=== PATIENT | male | born 1945 | race Caucasian/White ===

== ENCOUNTER 2018-01-05 19:18 | Inpatient (IN) | payer MEDICARE, SELFPAY ==
[2018-01-05] VITALS (10 sets, daily range): BP systolic 109–160; BP diastolic 42–120; PULSE 89–116; RESP 10–23; TEMP 36.7–39.3; O2SAT 83–94; BMI 34.9
--- NOTE | 2018-01-05 19:33 | ED.RN ---
RN CALLED FOR EKG, NO OLD EKG'S IN MUSE
[2018-01-05 19:36] LABS: Bedside Glucose 130 mg/dL (70-110)
--- NOTE | 2018-01-05 19:42 | RAD_ITS ---
STUDY: X-RAY CHEST REASON FOR EXAM: Male, 72 years old. Short of breath and COPD. TECHNIQUE: Single AP portable view of the chest. COMPARISON: None. FINDINGS: The lungs are hyperexpanded. There are coarsened interstitial markings suggestive of mild chronic fibrosis. No gross focal infiltrates. Calcified granulomas in the upper lobes and left lung base. No gross effusions. Normal size heart. Normal mediastinum and martin. Normal visualized pulmonary arteries. Normal visualized aortic arch and descending thoracic aorta. Normal visualized thoracic spine. Normal visualized ribs, clavicles, and shoulders. There is no demonstrated abnormality of the visualized soft tissue structures of the upper abdomen. RAD/Chest 1 View (Portable) IMPRESSION: There are findings consistent with COPD. There is no evidence of acute chest disease. Electronically Signed: John Garcia MD at 19:57 EDT , Service support ,
--- NOTE | 2018-01-05 19:42 | EKG12_ITS ---
Test Reason : CP Blood Pressure : / mmHG Vent. Rate : 114 BPM Atrial Rate : 114 BPM P-R Int : 178 ms QRS Dur : 088 ms QT Int : 296 ms P-R-T Axes : -06 075 020 degrees QTc Int : 407 ms Sinus tachycardia with frequent Premature ventricular complexes in a pattern of bigeminy Otherwise normal ECG Confirmed by TALIB BYNUM, SURESH ([id number]), society editor LISA VAQSUEZ ([id number] on 01/07/2018 3:38:17 PM Referred By: KIM Confirmed By:SURESH MAYERS MD
[2018-01-05] MEDS: Albuterol 2.5 MG/3 ML VIAL.NEB. INHALATION ×2 (20:00)
[2018-01-05] MEDS: Ipratropium/Albuterol Sulfate 3 ML AMPUL.NEB INHALATION (20:00)
[2018-01-05] MEDS: Acetaminophen 500 MG Tablet 1000 MG PO (20:20)
[2018-01-05] MEDS: MethylPREDNISolone 125 MG/2 ML Vial IV (20:21)
[2018-01-05 20:31] LABS: ALB/GLOB Ratio 0.8 RATIO (0.9-2.4); AST(SGOT) 22 U/L (15-37); Alanine Aminotransfer ALT/SGPT 29 U/L (16-61); Alkaline Phosphatase 59 U/L (45-117); Anion Gap 4 (5-15); BUN 11 mg/dL (7-18); BUN/Creat Ratio 11.1 RATIO (10-20); Calcium,Total 8.4 mg/dL (8.5-10.1); Chloride 99 mmol/L (98-107); Creatinine, Serum 0.99 mg/dL (0.70-1.30); EST Glomerular Filtration Rate 79 mL/min (>60); Est Glom Filt Rate - Afr Amer 96 mL/min (>60); Estimated Creatinine Clearance 66.21 ml/min; Globulin 3.6 g/dL (2.2-4.2); Glucose 117 mg/dL (74-106); Potassium 4.5 mmol/L (3.5-5.1); Protein, Total 6.6 g/dL (6.4-8.2); Sodium Level 137 mmol/L (136-145)
[2018-01-05 20:32] LABS: Absolute Lymphocyte Count 1.19 X10^3/ul (0.83-4.51); Absolute Neutrophil Count 3.3 X10^3/uL (2.0-7.7); Basophil# 0.05 X10^3/uL; Basophil% 0.9 % (0-1); Differential Indicated SCAN CRITERIA MET; Eosinophils% 1.8 % (0-5); Hematocrit 34.3 % (40-54); Hemoglobin 9.5 g/dl (13.0-16.5); Lymphocyte # 1.19 X10^3/ul (4.0); Lymphocyte % 21.3 % (19-41); Mean Corp Hgb Conc 27.7 g/gl (32-36); Mean Corpuscular Hgb 26.6 pg (27.0-32.0); Mean Corpuscular Volume 96.1 fL (80-94); Mean Platelet Vol. 9.7 fl (6.2-12.0); Monocyte# 0.81 X10^3/uL; Monocyte% 14.5 % (0-10); Neutrophil # 3.34 X10^3/uL (2.7-7.7); Neutrophil % 59.7 % (47-70); POSITIVE COUNT NO; POSITIVE DIFFERENTIAL NO; POSITIVE MORPHOLOGY YES; Platelet Count 283 K/mm3 (150-450); RBC Distribution Width CV 24.5 % (11.6-14.6); RBC Distribution Width SD 85.1 fl (35.1-43.9); Red Blood Count 3.57 M/mm3 (4.6-6.2); White Blood Count 5.6 K/mm3 (4.4-11.0)
[2018-01-05 20:44] LABS: International Normalized Ratio 1.3
[2018-01-05] MEDS: HYDROcodone Bitartrate/Apap 5/325 Tablet PO (20:44)
[2018-01-05 20:45] LABS: Partial Thromboplast Time 42.8 Seconds (24.1-36.2)
[2018-01-05 20:54] LABS: Differential Comment SCANNED
[2018-01-05 21:45] LABS: Bacteria 0 SEEN /hpf (None Seen); Mucous, Urine 0 SEEN /hpf (<or=2+); Red Blood Cells-Urine 0 SEEN /hpf (0-5); Squamous Epithelial Cells - UA 0 SEEN /hpf (0-5)
[2018-01-05 21:58] LABS: Color, Urine Yellow (Yellow); Glucose, Dipstick Normal (Normal); Ketone-Dipstick Negative (Negative); Leukocyte Esterase-Dipstick 25 /ul (Negative); Nitrite-Dipstick Negative (Negative); Occult Blood-Urine Negative /ul (Negative); Protein-Dipstick Negative (Negative); Specific Gravity, Urine 1.015 (1.002-1.030); Urine Bilirubin Dipstick Negative (Negative); Urine Clarity Clear (Clear); Urine Urobilinogen Normal (Normal)
[2018-01-05 22:04] LABS: White Blood Cells 0-5 SEEN /hpf (0-5)
[2018-01-05 22:16] LABS: BNP,B-Type NATRIURETIC PEPTIDE 110.1 pg/mL (0-100)
--- NOTE | 2018-01-05 22:24 | ED.RN ---
PT FOUND TO BE HAVING APENIC PERIODS WHILE SLEEPING. SPOUSE STATES HE WAS TOLD HE MIGHT HAVE SLEEP APNEA DURING LAST ADMISSION BUT NEVER HAD THE TEST DONE. DR ALVAREZ NOTIFIED AND BIPAP ORDERED
--- NOTE | 2018-01-05 22:28 | CT_ITS ---
STUDY: CTA CHEST REASON FOR EXAM: Male, 72 years old. Hypoxia. Chest pain. COPD. Atrial fibrillation. RADIATION DOSAGE (If Supplied By Facility): CTDIvol = ( 26.65 ) mGy, DLP = ( 761.35 ) mGycm TECHNIQUE: The examination was performed with the intravenous administration of 100ML ml of Isovue 370 contrast material. Post-processing of the angiographic images was performed, with multiplanar reformation and 3D reconstruction. Individualized dose optimization techniques were used for this CT. COMPARISON: None. FINDINGS: Normal enhancement of the main pulmonary artery and right and left pulmonary arteries. Normal enhancement of the bilateral peripheral pulmonary arteries. There is no demonstrated pulmonary embolism. Normal thoracic aorta and visualized great vessels. There is no demonstrated aortic dissection. Normal heart and pericardium. There is moderate mediastinal and bilateral hilar adenopathy. As example, there is a 1.9 cm left hilar lymph node. There is a 2.2 cm centimeter lymph node or mass in the lower right hilum. There is adenopathy in the subcarinal space with a greatest dimension of 3.5 cm. These findings are indeterminate. A neoplastic process is not excluded. Consider biopsy and/or follow-up. Normal visualized trachea and bronchi. The lungs are hyper expanded, with flattening of the hemidiaphragms. There is evidence for centrilobular emphysema with diffuse interstitial thickening. Irregular density is seen along the posterior surfaces of both lower lobes and especially in the posterior costophrenic angles most likely representing scarring and/or subsegmental atelectasis. No gross mass. No effusion. Normal chest wall structures. Normal osseous structures. Normal visualized upper abdomen. CT/CTA Chest W/WO Contrast IMPRESSION: No evidence for PE. COPD/emphysema. Mediastinal and bilateral hilar adenopathy. Consider biopsy or follow-up in 6 months. Electronically Signed: John Garcia MD at 23:33 EDT , Service support ,
--- NOTE | 2018-01-05 22:58 | PCM.HP.STD ---
Problem List (1) COPD (chronic obstructive pulmonary disease) Status: Acute (2) Chronic back pain Status: Chronic History of Present Illness Date of Admission: 01/05/18 Chief Complaint: shortness of breath The patient is a 72 year old male patient with a significant past medical history of COPD. He is a former smoker. Last month he spent 16 days on [facility] for a similar exacerbation and was intubated for some of that stay. He has been on home oxygen for the past year. Yesterday the recognized his respiratory effort had increased and today he began struggling to breath. Initially he was hypoxic , tachycardic and tachypneic. CBC is within normal limits and lactate level is normal. The patient has stabilized with BIPAP in the ER. CXR findings were consistent with COPD exacerbation. A CT scan of the chest was ordered and results pending at the time of my evaluation. No chest pain at present, he does complain of chronic back pain. He and his live in a camper and move around from place to place, I encouraged pulmonary rehabilitation when he is ready for discharge. Past Medical History Past Medical History (Chronic Problems): Chronic Problems Chronic back pain (Chronic) Allergies No Known Allergies Allergy (Verified 01/05/18 19:20) Home Medications: Ambulatory Orders Medication Instructions Recorded Diltiazem HCl [Cartia Xt] 240 mg PO DAILY 01/05/18 Ferrous Sulfate 325 mg PO BIDCM 01/05/18 Gabapentin [Neurontin] 300 mg PO TID 01/05/18 Pantoprazole Sodium [Protonix] 40 mg PO DAILY 01/05/18 Rivaroxaban [Xarelto] 20 mg PO DAILY 01/05/18 Torsemide [Demadex] 20 mg PO DAILY 01/05/18 Smoking Status: Former smoker - *Family History Maternal History Items: No pertinent history Review of Systems Constitutional: Reports: Fever. Denies: Chills, Weight Change HEENT: Denies: Head Aches, Sinus Congestion, Sinus Drainage Cardiovascular: Denies: Chest Pain, Palpitations Respiratory: Reports: Shortness of breath at rest. Denies: Cough, Sputum production Gastrointestinal: Denies: Abdominal Pain, Nausea, Vomiting Genitourinary: Denies: Dysuria Musculoskeletal: Denies: Joint Pain, Joint Tenderness Skin: Denies: Rash, Wounds Neurological: Denies: Numbness, Tingling, Focal weakness Psychiatric: Denies: Anxiety, Depression, Homicidal Ideations, Suicidal Ideations Hematologic/ Lymphatic: Denies: Easy Bruising, Easy Bleeding VTE Information - Inpt Only VTE Present on Admission: No VTE Mechan Device Prophylaxis: None VTE Pharm Prophylaxis ordered?: Yes Patient Problems: Active and Suspected Problems COPD (chronic obstructive pulmonary disease) (Acute) - Physical Exam General: Alert, Oriented x3, Cooperative HEENT: Atraumatic, Normocephalic Neck: Supple Lungs: Normal air movement, No wheeze, Diminished Cardiovascular: Regular rate, Normal S1, Normal S2, No murmurs Abdomen: Bowel Sounds Present, Soft, Non Tender, Obese Extremities: No edema Skin: No rashes, No breakdown Musculoskeletal: No Tenderness to Palpation of Joints or Extremities Neurological: Neuro grossly intact Psych/Mental Status: Normal Affect, Appropriate Vital Signs Temp Pulse Resp BP Pulse Ox 98.1 F 93 17 109/55 L 91 01/05/18 21:05 01/05/18 22:48 01/05/18 22:48 01/05/18 22:00 01/05/18 22:48 Oxygen Flow Rate (L/min) 6 Oxygen Delivery Method Nasal Cannula Weight: 229 lb 8.019 oz Body Mass Index (BMI) 34.9 Finger Stick Blood Glucose 130 Laboratory Tests Past 24 Hrs 01/05/18 01/05/18 01/05/18 19:30 19:30 19:30 WBC 5.6 RBC 3.57 L Hgb 9.5 L Hct 34.3 L MCV 96.1 H MCH 26.6 L MCHC 27.7 L RDW 24.5 H RDW Differential 85.1 H Plt Count 283 MPV 9.7 Immature Gran % (Auto) 1.800 H Neut % (Auto) 59.7 Lymph % (Auto) 21.3 [place] % (Auto) 14.5 H Eos % (Auto) 1.8 Baso % (Auto) 0.9 Absolute Neuts (auto) 3.3 Absolute Lymphs (auto) 1.19 Total Counted Not Reportable Differential Comment SCANNED PT 16.0 H INR 1.3 APTT 42.8 H Sodium 137 Potassium 4.5 Chloride 99 Carbon Dioxide 34.0 H Anion Gap 4 L BUN 11 Creatinine 0.99 Estim Creat Clear Calc 66.21 Est GFR (MDRD) Af Amer 96 Est GFR (MDRD) Non-Af 79 BUN/Creatinine Ratio 11.1 Glucose 117 H Lactic Acid Calcium 8.4 L Total Bilirubin 0.30 AST 22 ALT 29 Alkaline Phosphatase 59 Troponin I < 0.015 B-Natriuretic Peptide Total Protein 6.6 Albumin 3.0 L Globulin 3.6 Albumin/Globulin Ratio 0.8 L Urine Color Urine Clarity Urine pH Ur Specific [place] Urine Protein Urine Glucose (UA) Urine Ketones Urine Occult Blood Urine Nitrite Urine Bilirubin Urine Urobilinogen Ur Leukocyte Esterase Urine RBC Urine WBC Ur Squamous Epith Cells Urine Bacteria Urine Mucus 01/05/1818 01/05/18 19:30 19:30 21:40 WBC RBC Hgb Hct MCV MCH MCHC RDW RDW Differential Plt Count MPV Immature Gran % (Auto) Neut % (Auto) Lymph % (Auto) [place] % (Auto) Eos % (Auto) Baso % (Auto) Absolute Neuts (auto) Absolute Lymphs (auto) Total Counted Differential Comment PT INR APTT Sodium Potassium Chloride Carbon Dioxide Anion Gap BUN Creatinine Estim Creat Clear Calc Est GFR (MDRD) Af Amer Est GFR (MDRD) Non-Af BUN/Creatinine Ratio Glucose Lactic Acid 1.0 Calcium Total Bilirubin AST ALT Alkaline Phosphatase Troponin I B-Natriuretic Peptide 110.1 H Total Protein Albumin Globulin Albumin/Globulin Ratio Urine Color Yellow Urine Clarity Clear Urine pH 6.0 Ur Specific [place] 1.015 Urine Protein Negative Urine Glucose (UA) Normal Urine Ketones Negative Urine Occult Blood Negative Urine Nitrite Negative Urine Bilirubin Negative Urine Urobilinogen Normal Ur Leukocyte Esterase 25 H Urine RBC 0 SEEN Urine WBC 0-5 SEEN Ur Squamous Epith Cells 0 SEEN Urine Bacteria 0 SEEN Urine Mucus 0 SEEN POC Glucose 01/05/18 19:30 POC Glucose 130 H Assessment/Plan All Active Problems COPD (chronic obstructive pulmonary disease) (Acute) Plan - admit to Progressive care unit - solumedrol 40mg IV q 8hrs - Levaquin 500mg IV q day - duoneb INH q 4hrs prn - continue BIPAP started in ER - CBC, BMP in am - continue routine home medications - LMWH for DVT prophylaxis - Pt is full code Code Visit Inpatient E&M: 62467 Init Hosp L3
[2018-01-05 23:01] LABS: Allen Test POS; Base Excess 3 mmol/L (-2 to +2); Blood Gas Specimen Type ART; EPAP 8; FI02 40; IPAP 16; PO2 65 mmHG (75-100); RR 18; SITE L Radial; SO2 87 % (95-99); Time Given 2300; Total Carbon Dioxide 33 mmol/L; pCO2 75.6 mmHg (35-45); pH 7.22 (7.35-7.45)
[2018-01-06] VITALS (37 sets, daily range): BP systolic 105–138; BP diastolic 59–101; PULSE 81–103; RESP 10–69; TEMP 36.2–37; O2SAT 75–98; BMI 34.3
--- NOTE | 2018-01-06 00:40 | CPS ---
pt going apneic while sleeping and sats dropping into the 70's and 80's. Pressures can be adjusted per Dr. Chavez
[2018-01-06] MEDS: 0.9% NaCl IVPB Med Flush (250 mL) 15 ML IV (01:03)
[2018-01-06] MEDS: levoFLOXacin IV 500 MG/100 ML BAG 100 MG IV (01:03)
[2018-01-06] MEDS: Ipratropium/Albuterol Sulfate 3 ML AMPUL.NEB INHALATION ×6 (03:29→23:25)
[2018-01-06 04:27] LABS: Hematocrit 34.9 % (40-54); Hemoglobin 10.1 g/dl (13.0-16.5); Mean Corp Hgb Conc 28.9 g/gl (32-36); Mean Corpuscular Hgb 28.3 pg (27.0-32.0); Mean Corpuscular Volume 97.8 fL (80-94); Platelet Count 252 K/mm3 (150-450); RBC Distribution Width CV 24.4 % (11.6-14.6); RBC Distribution Width SD 83.4 fl (35.1-43.9); Red Blood Count 3.57 M/mm3 (4.6-6.2); White Blood Count 5.9 K/mm3 (4.4-11.0)
[2018-01-06 04:31] LABS: Differential Indicated MANUAL DIFF; POSITIVE COUNT YES; POSITIVE DIFFERENTIAL NO; POSITIVE MORPHOLOGY YES
[2018-01-06 04:43] LABS: ALB/GLOB Ratio 0.8 RATIO (0.9-2.4); AST(SGOT) 22 U/L (15-37); Alanine Aminotransfer ALT/SGPT 31 U/L (16-61); Albumin, Serum 2.9 g/dL (3.2-5.0); Alkaline Phosphatase 61 U/L (45-117); Anion Gap 6 (5-15); BUN 13 mg/dL (7-18); BUN/Creat Ratio 14.5 RATIO (10-20); Chloride 100 mmol/L (98-107); EST Glomerular Filtration Rate 89 mL/min (>60); Est Glom Filt Rate - Afr Amer 107 mL/min (>60); Estimated Creatinine Clearance 72.83 ml/min; Globulin 3.7 g/dL (2.2-4.2); Glucose 237 mg/dL (74-106); Potassium 4.7 mmol/L (3.5-5.1); Protein, Total 6.6 g/dL (6.4-8.2); Sodium Level 139 mmol/L (136-145)
[2018-01-06] MEDS: 0.9% NaCl Peripheral Flush Adult/Peds IV ×3 (05:24→14:44)
[2018-01-06 05:34] LABS: Basophil 2 % (0-1); Lymphocyte 14 % (19-41); Metamyelocyte 3 % (0-1); Monocyte 3 % (0-10); Myelocyte 1 (0-0); Neutrophil-Band 7 % (0-5); Neutrophil-Segmented 70 % (47-70); Nucleated Red Bld Cells,Manual 1 % (0-5); Total Cells Counted 100 (MANUAL DIFF)
[2018-01-06 05:35] LABS: Anisocytosis 2+; Hypochromasia 1+; Microcytosis 1+; Platelet Estimate ADEQUATE (ADEQ); Platelet Morphology LARGE; Polychromasia 1+
[2018-01-06 06:12] LABS: Absolute Lymphocyte Count 0.83 X10^3/ul (0.83-4.51); Absolute Neutrophil Count 4.5 X10^3/uL (2.0-7.7)
--- NOTE | 2018-01-06 06:59 | PCM.CON.CC ---
Reason for Consult Date of Consultation: 01/06/18 Reason for Consultation: Respiratory failure History of Present Illness: The patient is a 72-year-old male, with a history as outlined below, who presented to the emergency department on January 05 with complaints of progressive dyspnea. The patient has a reported history of COPD of unknown severity. In addition, last month he was admitted to [facility], requiring inpatient admission and mechanical ventilation. The patient is confused and can offer very little detail as to the reason for his hospitalization. He does report having been told that he has COPD. However, he does not follow with a stock buyer, nor has he undergone pulmonary function testing to confirm this assertion. He states that he does utilize inhalers in his home environment but cannot recall their names. He has a [id number] smoking history, having quit completely 2 years ago. On presentation to the emergency department, the patient was noted to be febrile, tachycardic and hypoxic. Laboratory evaluation revealed no evidence of a leukocytosis. There was evidence of normocytic anemia. Initial arterial blood gas on BiPAP with a pressure setting of 16/8 cm of water revealed a pH of 7.2 with a corresponding PCO2 of 65 and PCO2 of 76. Chemistry profile was significant for an elevated serum bicarbonate of 34. Serum lactate was within normal limits. BNP was mildly elevated to 110. Troponin was negative. Urinalysis was unremarkable. CTA chest was obtained in the emergency department revealed no evidence for pulmonary embolism. There was evidence of both mediastinal and hilar lymphadenopathy. The lungs were hyperexpanded with flattened diaphragms and evidence for centrilobular emphysema. The patient was placed on BiPAP therapy, along with aerosol treatments, steroids and antibiotics. He was subsequently transferred to the medical intensive care unit for ongoing management. It does appear that the patient was initially being maintained on a BiPAP of 16/8 cm of water but then changes were made overnight to the patient's pressure support settings. He is currently on bilevel therapy with a pressure support of 27/17 cm of water. [facility] Records reviewed (approximately 50 pages) The patient appears to have been admitted for approximately 16 days in November 2017, after presenting with shortness of breath and cough. The patient does appear to have chronic CO2 retention based upon outside laboratory results with possible underlying alveolar hypoventilation secondary to obesity. On December 04, the patient was intubated and underwent bronchoscopy. A moderate degree of bilateral secretions were noted without endobronchial masses or lesions. It also appears that an overnight oximetry study was completed on 5 L/min nasal cannula but continued to demonstrate significant oxygen desaturations with a aydee of 66%. High resolution CT chest completed on December 01 revealed bilateral cylindrical bronchiectasis most prominent in the right middle lobe and right lower lobe. Apical centrilobular emphysema was noted. The patient was treated for a COPD/bronchiectasis exacerbation secondary to presumed aspiration pneumonia. The patient was discharged home on 2 L/min of supplemental oxygen, along with a prednisone taper, Symbicort and Spiriva. Past Medical History Past Medical History (Chronic Problems): Chronic Problems Chronic back pain (Chronic) Allergies No Known Allergies Allergy (Verified 01/05/18 19:20) Home Medications: Ambulatory Orders Medication Instructions Recorded Diltiazem HCl [Cartia Xt] 240 mg PO DAILY 01/05/18 Ferrous Sulfate 325 mg PO BIDCM 01/05/18 Gabapentin [Neurontin] 300 mg PO TID 01/05/18 Pantoprazole Sodium [Protonix] 40 mg PO DAILY 01/05/18 Rivaroxaban [Xarelto] 20 mg PO DAILY 01/05/18 Torsemide [Demadex] 20 mg PO DAILY 01/05/18 Smoking Status: Former smoker - *Family History Maternal History Items: No pertinent history Review of Systems Constitutional: Denies: Chills, Fever Eyes: Denies: Blurred vision, Double vision HEENT: Denies: Head Aches, Sinus Congestion, Sinus Drainage Cardiovascular: Denies: Chest Pain, Palpitations Respiratory: Reports: Cough, Shortness of Breath Gastrointestinal: Denies: Abdominal Pain, Nausea, Vomiting Genitourinary: Denies: Dysuria Musculoskeletal: Denies: Joint Pain, Joint Tenderness Skin: Denies: Rash, Wounds Neurological: Denies: Numbness, Tingling, Focal weakness Psychiatric: Denies: Anxiety, Depression, Homicidal Ideations, Suicidal Ideations Hematologic/ Lymphatic: Reports: Anemia Patient Problems: Active and Suspected Problems COPD (chronic obstructive pulmonary disease) (Acute) Objective: The patient's most recent lab work, culture data and imaging studies have all been personally reviewed. - Physical Exam General: Cooperative, Confused, - - Alert and oriented to person and time. HEENT: Atraumatic, PERRLA, Normocephalic Oral: Dry Mucosa Neck: Supple, No Nodes, Trachea Midline Lungs: - - Globally diminished air movement bilaterally without appreciable wheezes, rales or rhonchi. Cardiovascular: Regular rate, Regular Rhythm, Normal S1, Normal S2, No murmurs Abdomen: Bowel Sounds Present, Soft, Non Tender, Obese Extremities: No clubbing, No cyanosis, No edema Skin: No breakdown Musculoskeletal: No Muscle Wasting Lymphatic: No Cervical, Supraclavicular, or Inguinal Adenopathy Neurological: Neuro grossly intact Psych/Mental Status: Flat Affect Vital Signs Temp Pulse Resp BP Pulse Ox 98.6 F 81 16 114/77 98 01/06/18 03:51 01/06/18 03:51 01/06/18 03:51 01/06/18 03:51 01/06/18 03:51 Oxygen Delivery Method Nasal Cannula Weight: 225 lb 12.054 oz Body Mass Index (BMI) 34.3 Intake and Output for Last 24 Hours 01/04/18 01/05/18 01/06/18 23:59 23:59 23:59 Intake Total 155 / 155 Output Total 500 / 500 Balance -345 / -345 Laboratory Tests Past 24 Hrs 01/06/18 01/06/18 04:03 04:03 WBC 5.9 RBC 3.57 L Hgb 10.1 L Hct 34.9 L MCV 97.8 H MCH 28.3 MCHC 28.9 L RDW 24.4 H RDW Differential 83.4 H Plt Count 252 MPV 10.0 Neut % (Auto) Not Reportable Absolute Neuts (auto) 4.5 Absolute Lymphs (auto) 0.83 Total Counted 100 Neutrophils % (Manual) 70 Band Neutrophils % 7 H Lymphocytes % (Manual) 14 L Monocytes % (Manual) 3 Basophils % (Manual) 2 H Metamyelocytes % 3 H Myelocytes % 1 H Nucleated RBCs/100 WBC 1 Diff Path Review May foll Platelet Estimate ADEQUATE Plt Morphology Comment LARGE Polychromasia 1+ Hypochromasia 1+ Anisocytosis 2+ Microcytosis 1+ Sodium 139 Potassium 4.7 Chloride 100 Carbon Dioxide 33.0 H Anion Gap 6 BUN 13 Creatinine 0.90 Estim Creat Clear Calc 72.83 Est GFR (MDRD) Af Amer 107 Est GFR (MDRD) Non-Af 89 BUN/Creatinine Ratio 14.5 Glucose 237 H Calcium 8.0 L Total Bilirubin 0.30 AST 22 ALT 31 Alkaline Phosphatase 61 Total Protein 6.6 Albumin 2.9 L Globulin 3.7 Albumin/Globulin Ratio 0.8 L Clinical Impression(s) from Imaging Studies Chest X-Ray 01/05/18 19:42 IMPRESSION: There are findings consistent with COPD. There is no evidence of acute chest disease. Electronically Signed: John Garcia MD at 19:57 EDT , Service support , Chest CTA 01/05/18 22:28 IMPRESSION: No evidence for PE. COPD/emphysema. Mediastinal and bilateral hilar adenopathy. Consider biopsy or follow-up in 6 months. Electronically Signed: John Garcia MD at 23:33 EDT , Service support , Assessment/Plan Active and Suspected Problems COPD (chronic obstructive pulmonary disease) (Acute) RECOMMENDATIONS: 1. Obtain repeat arterial blood gas. Transition patient from BIPAP to AVAPS (Vt 500/EPAP 10/IPAP 15-25) 2. Obtain outside medical records from [facility] regarding recent hospitalization. 3. Make patient n.p.o. 4. If the patient's respiratory parameters do not improve with the use of AVAPS, intubation should then be considered. 5. Continue scheduled aerosol treatments 6. Continue empiric antibiotics 7. Continue IV Solu-Medrol as ordered. 8. Obtain echocardiogram IMPRESSIONS: 1. Acute on Chronic hypoxemic and hypercarbic respiratory failure Likely secondary to suspected COPD with exacerbation, although the exact inciting factor is not clear. The patient did have cylindrical bronchiectasis noted on high-resolution CT chest in November 2017, completed at [facility]. There is no evidence of PE or focal pulmonary infiltrate noted on repeat chest imaging on admission. However, the patient was febrile. Infectious workup is currently underway. Agree with checking respiratory viral panel. Continue empiric antibiotics, pending infectious workup. Continue scheduled bronchodilators along with IV steroids. The patient was initially maintained on BiPAP but did not respond appropriately. Therefore, this morning he was transitioned to AVAPS in hopes of further optimizing his respiratory status. If the patient does not respond to this form of noninvasive positive pressure ventilation, with the need to consider potential need for intubation. Given that the patient does appear to have chronic CO2 retention, would recommend weaning FiO2 to maintain oxygen saturations 88-92%. The patient undoubtedly needs close follow-up in the pulmonary medicine clinic upon discharge from the hospital. Baseline PFTs need to be obtained. 2. 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 He would certainly benefit from a diagnostic polysomnogram for further evaluation. This can be arranged for on an outpatient basis. For now, the patient will be continued on AVAPS as noted above. 3. Personal history of PE/paroxysmal atrial fibrillation The patient was noted to have a PE in October 2016 and has been anticoagulated with Xarelto since that time. This will be continued without change. 4. Heart failure with preserved ejection fraction/GERD/bladder cancer status post resection Complicates care, management, recovery and prognosis. Continue PPI. Plan to obtain repeat echocardiogram. Physical therapy evaluation is warranted once medically stabilized. TIME: 80 minutes of critical care time, independent of procedures, was spent addressing the patient's acute on chronic respiratory failure, suspected COPD with exacerbation, suspected ERNIE with OHS, personal history of PE, heart failure with preserved ejection fraction, review of all data and collaboration with the care team. ([id number]) Code Visit Procedures: 87066 Critial Care Addl 30 Min 9xxxx: [id number] Critical care first hour
--- NOTE | 2018-01-06 07:06 | CON.PCM_ITS ---
Reason for Consult Date of Consultation: 01/06/18 Reason for Consultation: Respiratory failure History of Present Illness: The patient is a 72-year-old male, with a history as outlined below, who presented to the emergency department on January 05 with complaints of progressive dyspnea. The patient has a reported history of COPD of unknown severity. In addition, last month he was admitted to [facility], requiring inpatient admission and mechanical ventilation. The patient is confused and can offer very little detail as to the reason for his hospitalization. He does report having been told that he has COPD. However, he does not follow with a licensing worker, nor has he undergone pulmonary function testing to confirm this assertion. He states that he does utilize inhalers in his home environment but cannot recall their names. He has a [id number] smoking history, having quit completely 2 years ago. On presentation to the emergency department, the patient was noted to be febrile , tachycardic and hypoxic. Laboratory evaluation revealed no evidence of a leukocytosis. There was evidence of normocytic anemia. Initial arterial blood gas on BiPAP with a pressure setting of 16/8 cm of water revealed a pH of 7.2 with a corresponding PCO2 of 65 and PCO2 of 76. Chemistry profile was significant for an elevated serum bicarbonate of 34. Serum lactate was within normal limits. BNP was mildly elevated to 110. Troponin was negative. Urinalysis was unremarkable. CTA chest was obtained in the emergency department revealed no evidence for pulmonary embolism. There was evidence of both mediastinal and hilar lymphadenopathy. The lungs were hyperexpanded with flattened diaphragms and evidence for centrilobular emphysema. The patient was placed on BiPAP therapy, along with aerosol treatments, steroids and antibiotics. He was subsequently transferred to the medical intensive care unit for ongoing management. It does appear that the patient was initially being maintained on a BiPAP of 16/ 8 cm of water but then changes were made overnight to the patient's pressure support settings. He is currently on bilevel therapy with a pressure support of 27/17 cm of water. [facility] Records reviewed (approximately 50 pages) The patient appears to have been admitted for approximately 16 days in November 2017 , after presenting with shortness of breath and cough. The patient does appear to have chronic CO2 retention based upon outside laboratory results with possible underlying alveolar hypoventilation secondary to obesity. On December 04, the patient was intubated and underwent bronchoscopy. A moderate degree of bilateral secretions were noted without endobronchial masses or lesions. It also appears that an overnight oximetry study was completed on 5 L/min nasal cannula but continued to demonstrate significant oxygen desaturations with a aydee of 66%. High resolution CT chest completed on December 01 revealed bilateral cylindrical bronchiectasis most prominent in the right middle lobe and right lower lobe. Apical centrilobular emphysema was noted. The patient was treated for a COPD/bronchiectasis exacerbation secondary to presumed aspiration pneumonia. The patient was discharged home on 2 L/min of supplemental oxygen, along with a prednisone taper, Symbicort and Spiriva. Past Medical History Past Medical History (Chronic Problems): Chronic Problems Chronic back pain (Chronic) Allergies No Known Allergies Allergy (Verified 01/05/18 19:20) Home Medications: Ambulatory Orders Medication Instructions Recorded Diltiazem HCl [Cartia Xt] 240 mg PO DAILY 01/05/18 Ferrous Sulfate 325 mg PO BIDCM 01/05/18 Gabapentin [Neurontin] 300 mg PO TID 01/05/18 Pantoprazole Sodium [Protonix] 40 mg PO DAILY 01/05/18 Rivaroxaban [Xarelto] 20 mg PO DAILY 01/05/18 Torsemide [Demadex] 20 mg PO DAILY 01/05/18 Smoking Status: Former smoker - *Family History Maternal History Items: No pertinent history Review of Systems Constitutional: Denies: Chills, Fever Eyes: Denies: Blurred vision, Double vision HEENT: Denies: Head Aches, Sinus Congestion, Sinus Drainage Cardiovascular: Denies: Chest Pain, Palpitations Respiratory: Reports: Cough, Shortness of Breath Gastrointestinal: Denies: Abdominal Pain, Nausea, Vomiting Genitourinary: Denies: Dysuria Musculoskeletal: Denies: Joint Pain, Joint Tenderness Skin: Denies: Rash, Wounds Neurological: Denies: Numbness, Tingling, Focal weakness Psychiatric: Denies: Anxiety, Depression, Homicidal Ideations, Suicidal Ideations Hematologic/ Lymphatic: Reports: Anemia Patient Problems: Active and Suspected Problems COPD (chronic obstructive pulmonary disease) (Acute) Objective: The patient's most recent lab work, culture data and imaging studies have all been personally reviewed. - Physical Exam General: Cooperative, Confused, - - Alert and oriented to person and time. HEENT: Atraumatic, PERRLA, Normocephalic Oral: Dry Mucosa Neck: Supple, No Nodes, Trachea Midline Lungs: - - Globally diminished air movement bilaterally without appreciable wheezes, rales or rhonchi. Cardiovascular: Regular rate, Regular Rhythm, Normal S1, Normal S2, No murmurs Abdomen: Bowel Sounds Present, Soft, Non Tender, Obese Extremities: No clubbing, No cyanosis, No edema Skin: No breakdown Musculoskeletal: No Muscle Wasting Lymphatic: No Cervical, Supraclavicular, or Inguinal Adenopathy Neurological: Neuro grossly intact Psych/Mental Status: Flat Affect Vital Signs Temp Pulse Resp BP Pulse Ox 98.6 F 81 16 114/77 98 01/06/18 03:51 01/06/18 03:51 01/06/18 03:51 01/06/18 03:51 01/06/18 03:51 Oxygen Delivery Method Nasal Cannula Weight: 225 lb 12.054 oz Body Mass Index (BMI) 34.3 Intake and Output for Last 24 Hours 01/04/18 01/05/18 01/06/18 23:59 23:59 23:59 Intake Total 155 / 155 Output Total 500 / 500 Balance -345 / -345 Laboratory Tests Past 24 Hrs 01/06/18 01/06/18 04:03 04:03 WBC 5.9 RBC 3.57 L Hgb 10.1 L Hct 34.9 L MCV 97.8 H MCH 28.3 MCHC 28.9 L RDW 24.4 H RDW Differential 83.4 H Plt Count 252 MPV 10.0 Neut % (Auto) Not Reportable Absolute Neuts (auto) 4.5 Absolute Lymphs (auto) 0.83 Total Counted 100 Neutrophils % (Manual) 70 Band Neutrophils % 7 H Lymphocytes % (Manual) 14 L Monocytes % (Manual) 3 Basophils % (Manual) 2 H Metamyelocytes % 3 H Myelocytes % 1 H Nucleated RBCs/100 WBC 1 Diff Path Review May foll Platelet Estimate ADEQUATE Plt Morphology Comment LARGE Polychromasia 1+ Hypochromasia 1+ Anisocytosis 2+ Microcytosis 1+ Sodium 139 Potassium 4.7 Chloride 100 Carbon Dioxide 33.0 H Anion Gap 6 BUN 13 Creatinine 0.90 Estim Creat Clear Calc 72.83 Est GFR (MDRD) Af Amer 107 Est GFR (MDRD) Non-Af 89 BUN/Creatinine Ratio 14.5 Glucose 237 H Calcium 8.0 L Total Bilirubin 0.30 AST 22 ALT 31 Alkaline Phosphatase 61 Total Protein 6.6 Albumin 2.9 L Globulin 3.7 Albumin/Globulin Ratio 0.8 L Clinical Impression(s) from Imaging Studies Chest X-Ray 01/05/18 19:42 IMPRESSION: There are findings consistent with COPD. There is no evidence of acute chest disease. Electronically Signed: John Garcia MD at 19:57 EDT , Service support , Chest CTA 01/05/18 22:28 IMPRESSION: No evidence for PE. COPD/emphysema. Mediastinal and bilateral hilar adenopathy. Consider biopsy or follow-up in 6 months. Electronically Signed: John Garcia MD at 23:33 EDT , Service support , Assessment/Plan Active and Suspected Problems COPD (chronic obstructive pulmonary disease) (Acute) RECOMMENDATIONS: 1. Obtain repeat arterial blood gas. Transition patient from BIPAP to AVAPS ( Vt 500/EPAP 10/IPAP 15-25) 2. Obtain outside medical records from [facility] regarding recent hospitalization. 3. Make patient n.p.o. 4. If the patient's respiratory parameters do not improve with the use of AVAPS , intubation should then be considered. 5. Continue scheduled aerosol treatments 6. Continue empiric antibiotics 7. Continue IV Solu-Medrol as ordered. 8. Obtain echocardiogram IMPRESSIONS: 1. Acute on Chronic hypoxemic and hypercarbic respiratory failure Likely secondary to suspected COPD with exacerbation, although the exact inciting factor is not clear. The patient did have cylindrical bronchiectasis noted on high-resolution CT chest in November 2017, completed at [facility]. There is no evidence of PE or focal pulmonary infiltrate noted on repeat chest imaging on admission. However, the patient was febrile. Infectious workup is currently underway. Agree with checking respiratory viral panel. Continue empiric antibiotics, pending infectious workup. Continue scheduled bronchodilators along with IV steroids. The patient was initially maintained on BiPAP but did not respond appropriately. Therefore, this morning he was transitioned to AVAPS in hopes of further optimizing his respiratory status. If the patient does not respond to this form of noninvasive positive pressure ventilation, with the need to consider potential need for intubation. Given that the patient does appear to have chronic CO2 retention, would recommend weaning FiO2 to maintain oxygen saturations 88-92%. The patient undoubtedly needs close follow-up in the pulmonary medicine clinic upon discharge from the hospital. Baseline PFTs need to be obtained. 2. 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 He would certainly benefit from a diagnostic polysomnogram for further evaluation. This can be arranged for on an outpatient basis. For now, the patient will be continued on AVAPS as noted above. 3. Personal history of PE/paroxysmal atrial fibrillation The patient was noted to have a PE in October 2016 and has been anticoagulated with Xarelto since that time. This will be continued without change. 4. Heart failure with preserved ejection fraction/GERD/bladder cancer status post resection Complicates care, management, recovery and prognosis. Continue PPI. Plan to obtain repeat echocardiogram. Physical therapy evaluation is warranted once medically stabilized. TIME: 80 minutes of critical care time, independent of procedures, was spent addressing the patient's acute on chronic respiratory failure, suspected COPD with exacerbation, suspected ERNIE with OHS, personal history of PE, heart failure with preserved ejection fraction, review of all data and collaboration with the care team. ([id number]) Code Visit Procedures: 48082 Critial Care Addl 30 Min 9xxxx: [id number] Critical care first hour
--- NOTE | 2018-01-06 07:07 | ECHOCS_ITS ---
Reason For Study: Dyspnea/SOB Procedure This was a 2D Doppler, Color Flow transthoracic echocardiogram. Exam performed portable in ICU/CCU. Left Ventricle Mild concentric left ventricular hypertrophy. The estimated ejection fraction is 65 %. Stage 1 diastolic dysfunction. No regional wall motion abnormalities noted. Right Ventricle Normal size and thickness. Normal systolic function. Atria Normal left atrium. Normal right atrium. Normal atrial septum. Mitral Valve The mitral valve is structurally normal. No prolapse or stenosis seen. Tricuspid Valve Normal tricuspid valve. Trivial tricuspid valve insufficiency. Right ventricular systolic pressure estimated to be 33 mmHg. Aortic Valve Normal aortic valve. Trisinus/trileaflet aortic valve. Pulmonic Valve Normal pulmonic valve. Great Vessels Normal aortic root. Normal arch. Normal inferior vena cava. Inferior vena cava collapse with sniff. Pericardium/Pleural No pericardial effusion. Medication Definity0.3ml given slow IV push to enhance endocardial definition. MMode/2D Measurements & Calculations LVIDd: 4.5 cm IVSd: 1.2 cm LVOT diam: 2.3 cm LVIDs: 2.4 cm LVPWd: 1.3 cm LVOT area: 4.1 cm2 RVDd: 4.4 cm FS: 47.4 % Ao root diam: 3.2 cm LAV(MOD-bp): 40.5 ml LA A4 area: 13.4 cm2 LAV(MOD-bp) Indexed: 18.9 ml/m2 LAV(MOD-sp2): 52.8 ml LAV(MOD-sp4): 29.6 ml RA A4 area: 20.0 cm2 Doppler Measurements & Calculations MV E max joshua: 88.8 cm/sec Lat Peak E' Joshua: 14.4 cm/sec Med Peak E' Joshua: 9.6 cm/sec MV A max joshua: 98.1 cm/sec E/E' lat: 6.2 E/E' med: 9.3 MV E/A: 0.91 Ao V2 max: 230.8 cm/sec LV V1 max: 140.0 cm/sec SV(LVOT): 104.0 ml Ao max P.3 mmHg LV V1 max P.8 mmHg Ao V2 mean: 145.1 cm/sec LV V1 mean P.6 mmHg Ao mean P.8 mmHg LV V1 mean: 102.5 cm/sec Ao V2 VTI: 38.8 cm LV V1 VTI: 25.3 cm JULIUS(I,D): 2.7 cm2 JULIUS(V,D): 2.5 cm2 PA V2 max: 122.9 cm/sec TR max joshua: 265.0 cm/sec TR max P.1 mmHg Interpretation Summary The estimated ejection fraction is 65 %. Stage 1 diastolic dysfunction. Mild concentric left ventricular hypertrophy. Trivial tricuspid valve insufficiency. Right ventricular systolic pressure estimated to be 33 mmHg. The study was technically difficult. There is no comparison study available. Contrast injection was performed. .rdering Physician: Harpal Stafford D.O Performed By: Katlyn Marroquin RDCS, RVT
[2018-01-06 07:20] LABS: Allen Test POS; Base Excess 8 mmol/L (-2 to +2); Bicarbonate 34.7 mmol/L (22-26); Blood Gas Specimen Type ART; EPAP 17; FI02 40; IPAP 27; PO2 39 mmHG (75-100); RR 14; SITE R Radial; SO2 66 % (95-99); Time Given 715; Total Carbon Dioxide 37 mmol/L; pCO2 71.8 mmHg (35-45); pH 7.29 (7.35-7.45)
--- NOTE | 2018-01-06 07:54 | RAD_ITS ---
STUDY: X-RAY CHEST REASON FOR EXAM: Male, 72 years old. Shortness of breath. TECHNIQUE: Single AP portable view of the chest. COMPARISON: Comparison is made with prior study dated January 05, 2018. FINDINGS: EKG electrodes are seen. Hyperinflation. Stable mild increased interstitial markings at the lung bases suggestive of atelectasis and/or scarring. There has been essentially no change. There is no demonstrated pleural abnormality. Normal size heart. Normal mediastinum and martin. Normal visualized pulmonary arteries. Normal visualized aortic arch and descending thoracic aorta. Normal visualized thoracic spine. Normal visualized ribs, clavicles, and shoulders. There is no demonstrated abnormality of the visualized soft tissue structures of the upper abdomen. RAD/Chest 1 View (Portable) IMPRESSION: Stable mild increased markings at the lung bases. There has been essentially no change since prior study. Electronically Signed: Filiberto Hernandez MD at 10:04 EDT Tel [phone], Service support ,
--- NOTE | 2018-01-06 08:53 | NURSING ---
Pt taken off bipap for approximately 10 minutes. SPO2 steadily in low 80s. Pt denies SOB. Bipap replaced at previous settings.
--- NOTE | 2018-01-06 09:09 | PCM.PN.HOSP ---
Patient Problems: Active and Suspected Problems COPD (chronic obstructive pulmonary disease) (Acute) Subjective: Patient notes continued dyspnea with any exertional attempts since admission to the ICU with ongoing BiPAP changes ?2 and now transition to AVAPS per Pulmonary/ICU. Patient per discussion with Dr. Stafford per review of records w/ prolonged hospitalization OSH recently (November 2017, x 16 days) w/ treatment of respiratory failure, going intubation with bronchoscopy in addition to high-resolution CT with notable bronchiectasis and emphysema with treatment for COPD exacerbation with presumed aspiration pneumonia eventually discharged to home on oxygen supplementation, inhalers and prednisone taper. Upon initial presentation of the ED patient was notably confused and could not give market history and since transition to the ICU has improved and is able to recount the events of recent admission. Patient denies fevers, chills, nausea, emesis, abdominal pain, chest pain although upon ED presentation he was febrile. Objective: Physical Examination: General: awake, alert, oriented to self, recent events, year, was notably confused upon ED presentation, cooperative, seated upright in the ICU bed, improved appearance, recent BIPAP-->AVAPS transition given ABGs not markedly improving. Skin: normal color, turgor, no icterus, cyanosis. HEENT: AT/NC, EOMI, PERRLA, dry MM, AVAPS in place. Lungs: Severely diffusely diminished, AVAPS in place, no current rales, ronchi or wheezing. Heart: Mildly tachycardic with regular rhythm; no gallop, rub audible. Abdomen: soft, obese, NTTP, ND, normal BS. Extremities: no cyanosis, clubbing, BL LE ankle to distal hinojosa edema. Neurological: patient awake, alert, oriented as noted; cognitive function improved since initial ED presentation; pupils equally reactive to light and accomodation; cranial nerves II-XII grossly normal, moving all 4 extremities but strength severely globally decreased secondary to acute presentation. Psychiatric: affect appears improved, fatigued, no acute evidence of depressive or anxiety feelings. Vitals/I&O's: Vital Signs Temp Pulse Resp BP Pulse Ox 97.6 F L 85 16 126/77 H 95 01/06/18 08:51 01/06/18 08:51 01/06/18 08:51 01/06/18 08:51 01/06/18 08:51 Oxygen Delivery Method Bi-pap Weight: 225 lb 12.054 oz Body Mass Index (BMI) 34.3 Intake and Output for Last 24 Hours 01/04/18 01/05/18 01/06/18 23:59 23:59 23:59 Intake Total 155 / 155 Output Total 500 / 500 Balance -345 / -345 Laboratory Results 01/06/18 04:03: WBC 5.9, RBC 3.57 L, Hgb 10.1 L, Hct 34.9 L, MCV 97.8 H, MCH 28.3, MCHC 28.9 L, RDW 24.4 H, RDW Differential 83.4 H, Plt Count 252, MPV 10.0, Neut % (Auto) Not Reportable, Absolute Neuts (auto) 4.5, Absolute Lymphs (auto) 0.83, Total Counted 100, Neutrophils % (Manual) 70, Band Neutrophils % 7 H, Lymphocytes % (Manual) 14 L, Monocytes % (Manual) 3, Basophils % (Manual) 2 H, Metamyelocytes % 3 H, Myelocytes % 1 H, Nucleated RBCs/100 WBC 1, Diff Path Review May foll, Platelet Estimate ADEQUATE, Plt Morphology Comment LARGE, Polychromasia 1+, Hypochromasia 1+, Anisocytosis 2+, Microcytosis 1+ 01/06/18 04:03: Sodium 139, Potassium 4.7, Chloride 100, Carbon Dioxide 33.0 H, Anion Gap 6, BUN 13, Creatinine 0.90, Estim Creat Clear Calc 72.83, Est GFR (MDRD) Af Amer 107, Est GFR (MDRD) Non-Af 89, BUN/Creatinine Ratio 14.5, Glucose 237 H, Calcium 8.0 L, Total Bilirubin 0.30, AST 22, ALT 31, Alkaline Phosphatase 61, Total Protein 6.6, Albumin 2.9 L, Globulin 3.7, Albumin/Globulin Ratio 0.8 L 01/06/18 07:14: Specimen Type ART, Sample Site R Radial, pH 7.29 L, Bicarbonate Actual 34.7 H, POC Total CO2 37, Base Excess 8 H, O2 Saturation 66 L, O2 % 40, ABG pCO2 71.8 H*, ABG pO2 39 L*, Vinnie Test POS, Respiration Rate 14, O2 Delivery Device Bi / C PAP, EPAP 17, IPAP 27, Blood Gas Notified Whom ICU , Blood Gas Notified Time 316 01/06/18 08:35: MRSA (PCR) Pending Current Medications Albuterol/Ipratropium (Duoneb) 3 ml INHALATION Q4H.RT [facility] Last Admin: 01/06/18 03:29 Dose: 3 ml Diltiazem HCl (Cardizem Cd) 240 mg PO DAILY [facility] Ferrous Sulfate (Ferrous Sulfate) 325 mg PO BIDCM [facility] Furosemide (Lasix) 40 mg PO DAILY [facility] Gabapentin (Neurontin) 300 mg PO TIDCM [facility] Guaifenesin (Mucinex) 1,200 mg PO BID [facility] Levofloxacin (Levaquin Iv) 500 mg in 100 mls @ 100 mls/hr IV Q24 [facility] Last Admin: 01/06/18 01:03 Dose: 100 mls/hr Sodium Chloride () 250 mls @ 15 mls/hr IV .[id number] PRN PRN Reason: SALINE FLUSH Last Admin: 01/06/18 01:03 Dose: 15 mls/hr Magnesium Hydroxide (Milk Of Magnesia) 30 ml PO DAILY PRN PRN PRN Reason: Constipation Methylprednisolone (Solu-Medrol) 40 mg IV Q8 [facility] Last Admin: 01/06/18 05:24 Dose: 40 mg Pantoprazole Sodium (Protonix) 40 mg PO DAILY [facility] Rivaroxaban (Xarelto) 20 mg PO DAILYCM [facility] Sodium Chloride () 5 - 30 ml IV UD PRN PRN Reason: SALINE FLUSH Last Admin: 01/06/18 05:24 Dose: 20 ml Medical Necessity - Tobacco Use Smoking Status: Former smoker Assessment/Plan All Active Problems COPD (chronic obstructive pulmonary disease) (Acute) The patient is a 72 y/o M w/ PMHx: Chronic COPD w/ Bronchiectasis w/ recent admission 11/2017 w/ discharge on 2L NC (Chronic Hypoxic Respiratory Failure), Obesity, Suspected ERNIE, History of PE on xarelto, PAF, Diastolic CHF, HTN, HLD, GERD, Hx Bladder CA s/p resection who presents to the [facility] ED on 01/05/18 with confusion, hypoxia, febrile. (1) Acute Encephalopathy secondary to Acute Hypoxic and Hypercarbic Respiratory Failure on Chronic secondary to Suspected Acute on chronic COPD exacerbation: CXR w/ chronic changes, CTPA w/ no acute evidence for PE, COPD, emphysema, mediastinal and bilateral hilar adenopathy, CBC on admission w/ WBC 5.6 without marked L shift. Admitted to the ICU as PCU status but, repeat ABG without marked improvement despite BIPAP adjustments x 2, now transitioned to AVAPS and transitioned to ICU status, continue ATC duonebs, PRN albuterol, IV methylprednisolone, currently maintained on IV levaquin, HOB, IS parameters, pending sputum cultures, respiratory panel, Bld Cx x 2 per ED upon presentation pending. (2) Diastolic CHF: History per patient, echo pending, continue home Xarelto, Lasix, Cardizem, not on statin therapy w/ FLP in AM and addition, not on ESCOBAR inhibitor but BP normal range, defer addition pending ECHO. (3) Hypertension: Continue home regimen including Cardizem, Lasix, PRN hydralazine. (4) Hyperlipidemia: Not on statin, FLP in AM, added. (5) History of pulmonary embolism: Maintained on home Xarelto regimen. (6) GERD: Continue PPI. (7) Chronic Anemia/Fe Deficiency Anemia: Admission Hgb 9.5, continue home Fe supplementation. (8) Obesity: Weight loss and lifestyle changes encouraged, nutrition consulted. (9) Suspected ERNIE: Per discussion with ICU/Pulm he will need to have home study prior to allowance of inpatient study. (10) DVT Prophylaxis: SCDs, Xarelto. (11) CODE status: Discussed CODE status at length including difference between FULL code, DNR-CCA and DNR-CC status. Discussed current pulmonary status with possible need for intubation if no improvement on repeat ABG given several BIPAP changes prior. Patient noted prior intubation recently and although preference to avoid noted FULL CODE status. Advanced Care Planning Face to Face Time: 18 minutes. Code Visit Inpatient E&M: 18419 [facility] L3 Procedures: 43882 Advncd Care Plan 30 Min
[2018-01-06 09:21] LABS: Allen Test POS; Base Excess 6 mmol/L (-2 to +2); Bicarbonate 31.3 mmol/L (22-26); Blood Gas Specimen Type ART; EPAP 10; FI02 40; IPAP 25; PO2 77 mmHG (75-100); RR 16; SITE L Radial; SO2 95 % (95-99); Time Given 915; Total Carbon Dioxide 33 mmol/L; pCO2 52.9 mmHg (35-45); pH 7.38 (7.35-7.45)
[2018-01-06 09:25] LABS: Pathologist Review Reviewed
[2018-01-06] MEDS: Pantoprazole Sodium 40 MG Tablet PO (09:57)
[2018-01-06] MEDS: Gabapentin 300 MG Capsule PO ×3 (09:58→15:56)
[2018-01-06] MEDS: Furosemide 40 MG Tablet PO (09:58)
[2018-01-06] MEDS: Ferrous Sulfate 325 MG Tablet PO ×2 (09:58→15:56)
[2018-01-06] MEDS: Rivaroxaban 20 MG Tablet PO (09:58)
[2018-01-06] MEDS: dilTIAZem CD 240 MG Capsule PO (09:58)
[2018-01-06 10:49] LABS: M R Staph aureus DNA By PCR Negative (Negative); Probe Check PASS; Specimen Processing Control PASS
[2018-01-06 13:29] LABS: Magnesium 2.3 mg/dL (1.6-2.6)
[2018-01-06] MEDS: oxyCODONE 5 MG Tablet PO (16:03)
[2018-01-06] MEDS: Atorvastatin Calcium 40 MG Tablet PO (22:21)
[2018-01-07] VITALS (34 sets, daily range): BP systolic 119–156; BP diastolic 60–101; PULSE 85–119; RESP 11–27; TEMP 36.5–37.1; O2SAT 89–97
[2018-01-07] MEDS: Ipratropium/Albuterol Sulfate 3 ML AMPUL.NEB INHALATION ×6 (03:11→23:35)
[2018-01-07 06:10] LABS: Anion Gap 8 (5-15); BUN 20 mg/dL (7-18); BUN/Creat Ratio 17.9 RATIO (10-20); Calcium,Total 8.6 mg/dL (8.5-10.1); Chloride 97 mmol/L (98-107); Cholesterol 194 mg/dL (200); Creatinine, Serum 1.12 mg/dL (0.70-1.30); EST Glomerular Filtration Rate 69 mL/min (>60); Est Glom Filt Rate - Afr Amer 83 mL/min (>60); Estimated Creatinine Clearance 58.53 ml/min; Glucose 243 mg/dL (74-106); High Density Lipoprotein 30 mg/dL; Potassium 4.3 mmol/L (3.5-5.1); Sodium Level 139 mmol/L (136-145); Triglycerides 274 mg/dL; Very Low Density Lipoprotein 55 mg/dL (5-40)
[2018-01-07 06:15] LABS: Absolute Lymphocyte Count 0.73 X10^3/ul (0.83-4.51); Absolute Neutrophil Count 6.2 X10^3/uL (2.0-7.7); Basophil# 0.01 X10^3/uL; Basophil% 0.1 % (0-1); Hematocrit 33.7 % (40-54); Hemoglobin 9.9 g/dl (13.0-16.5); Lymphocyte # 0.73 X10^3/ul (4.0); Lymphocyte % 9.3 % (19-41); Mean Corp Hgb Conc 29.4 g/gl (32-36); Mean Corpuscular Hgb 28.2 pg (27.0-32.0); Mean Platelet Vol. 9.9 fl (6.2-12.0); Monocyte# 0.74 X10^3/uL; Monocyte% 9.4 % (0-10); Neutrophil % 79.2 % (47-70); Platelet Count 281 K/mm3 (150-450); RBC Distribution Width CV 23.7 % (11.6-14.6); RBC Distribution Width SD 80.2 fl (35.1-43.9); Red Blood Count 3.51 M/mm3 (4.6-6.2); White Blood Count 7.8 K/mm3 (4.4-11.0)
[2018-01-07 06:23] LABS: Differential Indicated SCAN CRITERIA MET; POSITIVE COUNT YES; POSITIVE DIFFERENTIAL NO; POSITIVE MORPHOLOGY YES
--- NOTE | 2018-01-07 06:39 | PCM.PN.INT ---
Subjective: The patient was seen and examined at the bedside this morning. Events from the last 24 hours have been reviewed. The patient is currently afebrile, hemodynamically stable and maintaining appropriate oxygen saturations on 6 L/min via nasal cannula. The patient was compliant with the use of AVAPS overnight. Although the patient reports subjective improvement in breathing quality, he remains on a significant amount of supplemental oxygen. Objective: The patient's most recent lab work, culture data and imaging studies have all been personally reviewed. Blood, urine and sputum cultures are pending. Respiratory viral panel was negative. Echocardiogram is pending. General: Alert, Cooperative, No apparent distress, - - Hard of hearing HEENT: Atraumatic, PERRLA, Normocephalic Oral: No Gingival or Mucosal Lesions/ Ulcerations Neck: Supple, No Nodes, Trachea Midline Lungs: No rhonchi, No wheeze, No rales, Diminished Cardiovascular: Regular rate, Regular Rhythm, Normal S1, Normal S2, No murmurs Abdomen: Bowel Sounds Present, Soft, Non Tender, Obese Extremities: No clubbing, No cyanosis, No edema Skin: No breakdown Musculoskeletal: No Tenderness to Palpation of Joints or Extremities, No Muscle Wasting Lymphatic: No Cervical, Supraclavicular, or Inguinal Adenopathy Neurological: Neuro grossly intact Psych/Mental Status: Normal Affect, Appropriate Vital Signs Temp Pulse Resp BP Pulse Ox 97.7 F L 95 11 L 127/75 H 91 01/07/18 04:00 01/07/18 06:00 01/07/18 06:00 01/07/18 06:00 01/07/18 06:00 Oxygen Flow Rate (L/min) 6 Oxygen Delivery Method Nasal Cannula Weight: 227 lb 8.273 oz Body Mass Index (BMI) 34.3 Intake and Output for Last 24 Hours 01/05/18 01/06/18 01/07/18 23:59 23:59 23:59 Intake Total 938.2 / 938.2 120 / 120 Output Total 1725 / 1725 500 / 500 Balance -786.8 / -786.8 -380 / -380 Labs (Last 48 Hours) 01/06/18 01/06/18 01/06/18 04:02 04:03 04:03 WBC 5.9 RBC 3.57 L Hgb 10.1 L Hct 34.9 L MCV 97.8 H MCH 28.3 MCHC 28.9 L RDW 24.4 H RDW Differential 83.4 H Plt Count 252 MPV 10.0 Immature Gran % (Auto) Neut % (Auto) Not Reportable Lymph % (Auto) [place] % (Auto) Eos % (Auto) Baso % (Auto) Absolute Neuts (auto) 4.5 Absolute Lymphs (auto) 0.83 Total Counted 100 Neutrophils % (Manual) 70 Band Neutrophils % 7 H Lymphocytes % (Manual) 14 L Monocytes % (Manual) 3 Basophils % (Manual) 2 H Metamyelocytes % 3 H Myelocytes % 1 H Nucleated RBCs/100 WBC 1 Diff Path Review Reviewed Platelet Estimate ADEQUATE Plt Morphology Comment LARGE Polychromasia 1+ Hypochromasia 1+ Anisocytosis 2+ Microcytosis 1+ Specimen Type Sample Site pH Bicarbonate Actual POC Total CO2 Base Excess O2 Saturation O2 % ABG pCO2 ABG pO2 Vinnie Test Respiration Rate O2 Delivery Device EPAP IPAP Blood Gas Notified Whom Blood Gas Notified Time Sodium 139 Potassium 4.7 Chloride 100 Carbon Dioxide 33.0 H Anion Gap 6 BUN 13 Creatinine 0.90 Estim Creat Clear Calc 72.83 Est GFR (MDRD) Af Amer 107 Est GFR (MDRD) Non-Af 89 BUN/Creatinine Ratio 14.5 Glucose 237 H Hemoglobin A1c Calcium 8.0 L Magnesium 2.3 Total Bilirubin 0.30 AST 22 ALT 31 Alkaline Phosphatase 61 Total Protein 6.6 Albumin 2.9 L Globulin 3.7 Albumin/Globulin Ratio 0.8 L Triglycerides Cholesterol LDL Cholesterol VLDL Cholesterol HDL Cholesterol MRSA (PCR) 01/06/18 01/06/18 01/06/18 04:03 07:14 08:35 WBC RBC Hgb Hct MCV MCH MCHC RDW RDW Differential Plt Count MPV Immature Gran % (Auto) Neut % (Auto) Lymph % (Auto) [place] % (Auto) Eos % (Auto) Baso % (Auto) Absolute Neuts (auto) Absolute Lymphs (auto) Total Counted Neutrophils % (Manual) Band Neutrophils % Lymphocytes % (Manual) Monocytes % (Manual) Basophils % (Manual) Metamyelocytes % Myelocytes % Nucleated RBCs/100 WBC Diff Path Review Platelet Estimate Plt Morphology Comment Polychromasia Hypochromasia Anisocytosis Microcytosis Specimen Type ART Sample Site R Radial pH 7.29 L Bicarbonate Actual 34.7 H POC Total CO2 37 Base Excess 8 H O2 Saturation 66 L O2 % 40 ABG pCO2 71.8 H* ABG pO2 39 L* Vinnie Test POS Respiration Rate 14 O2 Delivery Device Bi / C PAP EPAP 17 IPAP 27 Blood Gas Notified Whom ICU MD Blood Gas Notified Time 715 Sodium Potassium Chloride Carbon Dioxide Anion Gap BUN Creatinine Estim Creat Clear Calc Est GFR (MDRD) Af Amer Est GFR (MDRD) Non-Af BUN/Creatinine Ratio Glucose Hemoglobin A1c 6.0 Calcium Magnesium Total Bilirubin AST ALT Alkaline Phosphatase Total Protein Albumin Globulin Albumin/Globulin Ratio Triglycerides Cholesterol LDL Cholesterol VLDL Cholesterol HDL Cholesterol MRSA (PCR) Negative 01/06/18 01/07/18 01/07/18 09:16 05:30 05:30 WBC 7.8 RBC 3.51 L Hgb 9.9 L Hct 33.7 L MCV 96.0 H MCH 28.2 MCHC 29.4 L RDW 23.7 H RDW Differential 80.2 H Plt Count 281 MPV 9.9 Immature Gran % (Auto) 2.000 H Neut % (Auto) 79.2 H Lymph % (Auto) 9.3 L [place] % (Auto) 9.4 Eos % (Auto) 0.0 Baso % (Auto) 0.1 Absolute Neuts (auto) 6.2 Absolute Lymphs (auto) 0.73 L Total Counted Pending Neutrophils % (Manual) Band Neutrophils % Lymphocytes % (Manual) Monocytes % (Manual) Basophils % (Manual) Metamyelocytes % Myelocytes % Nucleated RBCs/100 WBC Diff Path Review Platelet Estimate Plt Morphology Comment Polychromasia Hypochromasia Anisocytosis Microcytosis Specimen Type ART Sample Site L Radial pH 7.38 Bicarbonate Actual 31.3 H POC Total CO2 33 Base Excess 6 H O2 Saturation 95 O2 % 40 ABG pCO2 52.9 H ABG pO2 77 Vinnie Test POS Respiration Rate 16 O2 Delivery Device Bi / C PAP EPAP 10 IPAP 25 Blood Gas Notified Whom ICU MD Blood Gas Notified Time 915 Sodium 139 Potassium 4.3 Chloride 97 L Carbon Dioxide 34.0 H Anion Gap 8 BUN 20 H Creatinine 1.12 Estim Creat Clear Calc 58.53 Est GFR (MDRD) Af Amer 83 Est GFR (MDRD) Non-Af 69 BUN/Creatinine Ratio 17.9 Glucose 243 H Hemoglobin A1c Calcium 8.6 Magnesium Total Bilirubin AST ALT Alkaline Phosphatase Total Protein Albumin Globulin Albumin/Globulin Ratio Triglycerides 274 H Cholesterol 194 LDL Cholesterol 109 VLDL Cholesterol 55 H HDL Cholesterol 30 L MRSA (PCR) Microbiology 01/06/18 07:10 Mucosa - Nose Respiratory Panel (PCR) - Final Clinical Impression(s) from Imaging Studies Chest X-Ray 01/05/18 19:42 IMPRESSION: There are findings consistent with COPD. There is no evidence of acute chest disease. Electronically Signed: John Garcia MD at 19:57 EDT , Service support , Chest CTA 01/05/18 22:28 IMPRESSION: No evidence for PE. COPD/emphysema. Mediastinal and bilateral hilar adenopathy. Consider biopsy or follow-up in 6 months. Electronically Signed: John Garcia MD at 23:33 EDT , Service support , Chest X-Ray 01/06/18 07:54 IMPRESSION: Stable mild increased markings at the lung bases. There has been essentially no change since prior study. Electronically Signed: Filiberto Hernandez MD at 10:04 EDT Tel [phone], Service support , Medical Necessity - Tobacco Use Smoking Status: Former smoker Assessment/Plan All Active Problems COPD (chronic obstructive pulmonary disease) (Acute) RECOMMENDATIONS: 1. Continue AVAPS with naps and nightly. 2. Wean supplemental oxygen to maintain saturations 88-92% 3. Provide with and encourage aggressive incentive spirometer use. Mobilize patient as tolerated. 4. Okay to transition from IV steroids to prednisone 40 mg daily by mouth. 5. Continue antibiotics and scheduled aerosol treatments. 6. Await echocardiogram 7. Continue Xarelto 8. Close outpatient pulmonary follow-up is recommended. Baseline PFTs and polysomnogram can be obtained at that time. IMPRESSIONS: 1. Acute on Chronic hypoxemic and hypercarbic respiratory failure Likely secondary to suspected COPD with exacerbation, although the exact inciting factor is not clear. The patient did have cylindrical bronchiectasis noted on high-resolution CT chest in November 2017, completed at [facility]. There is no evidence of PE or focal pulmonary infiltrate noted on repeat chest imaging on admission. However, the patient was febrile. Infectious workup is currently underway. We will plan to continue empiric antibiotics, pending infectious workup. IV Levaquin can be transitioned to p.o. route. Continue scheduled bronchodilators along with steroids. The patient has responded remarkably well to the use of AVAPS, which will be continued with naps and nightly. Given that the patient does appear to have chronic CO2 retention, would recommend weaning FiO2 to maintain oxygen saturations 88-92%. The patient undoubtedly needs close follow-up in the pulmonary medicine clinic upon discharge from the hospital. Baseline PFTs need to be obtained. The patient will be monitored in the ICU setting yet today. 2. 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 He would certainly benefit from a diagnostic polysomnogram for further evaluation. This can be arranged for on an outpatient basis. For now, the patient will be continued on AVAPS as noted above. 3. Personal history of PE/paroxysmal atrial fibrillation The patient was noted to have a PE in October 2016 and has been anticoagulated with Xarelto since that time. This will be continued without change. 4. Heart failure with preserved ejection fraction/GERD/bladder cancer status post resection Complicates care, management, recovery and prognosis. Continue PPI. Plan to obtain repeat echocardiogram. Physical therapy evaluation is pending for today. This note was generated with [employer] dictation software. It may contain incorrect words, spelling, and punctuation that were not noted in checking the note before signing. Code Visit Inpatient E&M: 70928 [facility] L3
[2018-01-07 07:04] LABS: Anisocytosis 1+; Differential Comment SCAN; Hypochromasia 1+; Microcytosis 1+; Polychromasia 1+
--- NOTE | 2018-01-07 07:25 | PCM.PN.HOSP ---
Patient Problems: Active and Suspected Problems COPD (chronic obstructive pulmonary disease) (Acute) Subjective: Patient overnight with no acute events per self and per nursing report. He is improved remarkably and is transitioned off of a VATS to BiPAP overnight and nasal cannula supplementation. Patient is now able to confirm but he also did have paroxysmal atrial fibrillation during his most recent hospitalization likely secondary to his acute presentation per review of history. He states that he has had more coughing and shortness of breath is near resolved although he does get mildly dyspneic with exertion. Patient denies fevers, chills, nausea, emesis, abdominal pain, chest pain. Objective: Physical Examination: General: awake, alert, oriented x 3 and cooperative, seated upright in the ICU bed in no apparent distress, remarkable confused. Skin: normal color, turgor, no icterus, cyanosis. HEENT: AT/NC, EOMI, PERRLA, MMM. Lungs: Reduced breath sounds throughout, greater bases, breathing treatment ongoing, improved effort, no rales, ronchi or wheezing. Heart: Regular rate and rhythm; no gallop, rub audible. Abdomen: soft, obese, NTTP, ND, normal BS. Extremities: no cyanosis, clubbing, improved BL LE ankle edema. Neurological: patient awake, alert, oriented x 3; cognitive function intact; pupils equally reactive to light and accomodation; cranial nerves II-XII grossly normal, moving all 4 extremities, no focal deficits, strength proved, moderately globally decreased. Psychiatric: affect appears normal, no acute evidence of depressive or anxiety feelings. Vitals/I&O's: Vital Signs Temp Pulse Resp BP Pulse Ox 97.7 F L 95 20 H 127/75 H 91 01/07/18 04:00 01/07/18 07:17 01/07/18 07:17 01/07/18 06:00 01/07/18 07:17 Oxygen Flow Rate (L/min) 6 Oxygen Delivery Method Nasal Cannula Weight: 227 lb 8.273 oz Body Mass Index (BMI) 34.3 Intake and Output for Last 24 Hours 01/05/18 01/06/18 01/07/18 23:59 23:59 23:59 Intake Total 938.2 / 938.2 120 / 120 Output Total 1725 / 1725 500 / 500 Balance -786.8 / -786.8 -380 / -380 Microbiology Past 72 Hours 01/06/18 07:10 Mucosa - Nose Respiratory Panel (PCR) - Final Laboratory Results 01/06/18 04:02: Magnesium 2.3 01/06/18 04:03: Diff Path Review Reviewed 01/06/18 04:03: Hemoglobin A1c 6.0 01/06/18 08:35: MRSA (PCR) Negative 01/06/18 09:16: Specimen Type ART, Sample Site L Radial, pH 7.38, Bicarbonate Actual 31.3 H, POC Total CO2 33, Base Excess 6 H, O2 Saturation 95, O2 % 40, ABG pCO2 52.9 H, ABG pO2 77, Vinnie Test POS, Respiration Rate 16, O2 Delivery Device Bi / C PAP, EPAP 10, IPAP 25, Blood Gas Notified Whom ICU MD, Blood Gas Notified Time 915 01/07/18 05:30: WBC 7.8, RBC 3.51 L, Hgb 9.9 L, Hct 33.7 L, MCV 96.0 H, MCH 28.2, MCHC 29.4 L, RDW 23.7 H, RDW Differential 80.2 H, Plt Count 281, MPV 9.9, Immature Gran % (Auto) 2.000 H, Neut % (Auto) 79.2 H, Lymph % (Auto) 9.3 L, [place] % (Auto) 9.4, Eos % (Auto) 0.0, Baso % (Auto) 0.1, Absolute Neuts (auto) 6.2, Absolute Lymphs (auto) 0.73 L, Total Counted Not Reportable, Differential Comment SCAN, Polychromasia 1+, Hypochromasia 1+, Anisocytosis 1+, Microcytosis 1+ 01/07/18 05:30: Sodium 139, Potassium 4.3, Chloride 97 L, Carbon Dioxide 34.0 H, Anion Gap 8, BUN 20 H, Creatinine 1.12, Estim Creat Clear Calc 58.53, Est GFR (MDRD) Af Amer 83, Est GFR (MDRD) Non-Af 69, BUN/Creatinine Ratio 17.9, Glucose 243 H, Calcium 8.6, Triglycerides 274 H, Cholesterol 194, LDL Cholesterol 109, VLDL Cholesterol 55 H, HDL Cholesterol 30 L Current Medications Albuterol Sulfate (Ventolin Aerosols) 2.5 mg INHALATION Q2H PRN PRN PRN Reason: dyspnea, wheezing Albuterol/Ipratropium (Duoneb) 3 ml INHALATION Q4H.RT [facility] Last Admin: 01/07/18 07:16 Dose: 3 ml Atorvastatin Calcium (Lipitor) 40 mg PO QHS [facility] Last Admin: 01/06/18 22:21 Dose: 40 mg Diltiazem HCl (Cardizem Cd) 240 mg PO DAILY [facility] Last Admin: 01/06/18 09:58 Dose: 240 mg Ferrous Sulfate (Ferrous Sulfate) 325 mg PO BIDCM [facility] Last Admin: 01/06/18 15:56 Dose: 325 mg Furosemide (Lasix) 40 mg PO DAILY [facility] Last Admin: 01/06/18 09:58 Dose: 40 mg Gabapentin (Neurontin) 300 mg PO TIDCM [facility] Last Admin: 01/06/18 15:56 Dose: 300 mg Hydralazine HCl (Apresoline Iv) 10 mg IV Q4H PRN PRN PRN Reason: SBP > 160 Levofloxacin (Levaquin Iv) 500 mg in 100 mls @ 100 mls/hr IV Q24 [facility] Last Admin: 01/06/18 01:03 Dose: 100 mls/hr Sodium Chloride () 250 mls @ 15 mls/hr IV .[id number] PRN PRN Reason: SALINE FLUSH Last Admin: 01/06/18 01:03 Dose: 15 mls/hr Magnesium Hydroxide (Milk Of Magnesia) 30 ml PO DAILY PRN PRN PRN Reason: Constipation Methylprednisolone (Solu-Medrol) 40 mg IV Q8 [facility] Last Admin: 01/07/18 05:17 Dose: 40 mg Pantoprazole Sodium (Protonix) 40 mg PO DAILY [facility] Last Admin: 01/06/18 09:57 Dose: 40 mg [facility]) [facility] Last Admin: 01/06/18 09:58 Dose: 20 mg Sodium Chloride () 5 - 30 ml IV UD PRN PRN Reason: SALINE FLUSH Last Admin: 01/06/18 14:44 Dose: 10 ml Medical Necessity - Tobacco Use Smoking Status: Former smoker Assessment/Plan All Active Problems COPD (chronic obstructive pulmonary disease) (Acute) The patient is a 72 y/o M w/ PMHx: Chronic COPD w/ Bronchiectasis w/ recent admission 11/2017 w/ discharge on 2L NC (Chronic Hypoxic Respiratory Failure), Obesity, Suspected ERNIE, History of PE on xarelto, PAF, Diastolic CHF, HTN, HLD, GERD, Hx Bladder CA s/p resection who presents to the [facility] ED on 01/05/18 with confusion, hypoxia, febrile. (1) Acute Encephalopathy secondary to Acute Hypoxic and Hypercarbic Respiratory Failure on Chronic secondary to Suspected Acute on chronic COPD exacerbation: CXR w/ chronic changes, CTPA w/ no acute evidence for PE, COPD, emphysema, mediastinal and bilateral hilar adenopathy, CBC on admission w/ WBC 5.6 without marked L shift. Admitted to the ICU as PCU status but, repeat ABG without marked improvement despite BIPAP adjustments x 2-->01/06 AM transitioned to AVAPS and transitioned to ICU status w/ improvement. Transitioned off AVAPS overnight, now on BIPAP/NC 01/07/18, continue ATC duonebs, PRN albuterol, IV methylprednisolone w/ oral transition per pulmonary discretion, currently maintained on IV levaquin (start 01/06/18), HOB, IS parameters, pending sputum cultures, respiratory panel negative, Bld Cx x 2 per ED upon presentation pending. (2) Diastolic CHF: History per patient, echo pending, continue home Xarelto, Lasix, Cardizem, not on statin therapy w/ FLP in AM and addition, not on ESCOBAR inhibitor but BP normal range, defer addition pending ECHO. (3) ? PAF: Notes recent PAF during prior hospitalization, likely secondary to strain of acute presentation. Continue Xarelto, cardizem regimen. Hypertension: Continue home regimen including Cardizem, Lasix, PRN hydralazine. (4) Hyperlipidemia: Not on statin, added, AM FLP w/ triglycerides 274, cholesterol 194, LDL 109, VLDL 55, HDL 30. (5) History of pulmonary embolism: Maintained on home Xarelto regimen. High risk as sold home over the last year and travels w/ mobile home. (6) GERD: Continue PPI. (7) Chronic Anemia/Fe Deficiency Anemia: Admission Hgb 9.5, continue home Fe supplementation. (8) Obesity: Weight loss and lifestyle changes encouraged, nutrition consulted. (9) Suspected ERNIE: Per discussion with ICU/Pulm he will need to have home study prior to allowance of inpatient study. (10) Hyperglycemia: Notable elevations, likely stress and steroid associated, HgbA1c 6.0%. (11) DVT Prophylaxis: SCDs, Xarelto. (12) CODE status: FULL CODE status. Code Visit Inpatient E&M: 31423 Subs Hosp L2
--- NOTE | 2018-01-07 07:33 | PN_ITS ---
Patient Problems: Active and Suspected Problems COPD (chronic obstructive pulmonary disease) (Acute) Subjective: Patient overnight with no acute events per self and per nursing report. He is improved remarkably and is transitioned off of a VATS to BiPAP overnight and nasal cannula supplementation. Patient is now able to confirm but he also did have paroxysmal atrial fibrillation during his most recent hospitalization likely secondary to his acute presentation per review of history. He states that he has had more coughing and shortness of breath is near resolved although he does get mildly dyspneic with exertion. Patient denies fevers, chills, nausea , emesis, abdominal pain, chest pain. Objective: Physical Examination: General: awake, alert, oriented x 3 and cooperative, seated upright in the ICU bed in no apparent distress, remarkable confused. Skin: normal color, turgor, no icterus, cyanosis. HEENT: AT/NC, EOMI, PERRLA, MMM. Lungs: Reduced breath sounds throughout, greater bases, breathing treatment ongoing, improved effort, no rales, ronchi or wheezing. Heart: Regular rate and rhythm; no gallop, rub audible. Abdomen: soft, obese, NTTP, ND, normal BS. Extremities: no cyanosis, clubbing, improved BL LE ankle edema. Neurological: patient awake, alert, oriented x 3; cognitive function intact; pupils equally reactive to light and accomodation; cranial nerves II-XII grossly normal, moving all 4 extremities, no focal deficits, strength proved, moderately globally decreased. Psychiatric: affect appears normal, no acute evidence of depressive or anxiety feelings. Vitals/I&O's: Vital Signs Temp Pulse Resp BP Pulse Ox 97.7 F L 95 20 H 127/75 H 91 01/07/18 04:00 01/07/18 07:17 01/07/18 07:17 01/07/18 06:00 01/07/18 07:17 Oxygen Flow Rate (L/min) 6 Oxygen Delivery Method Nasal Cannula Weight: 227 lb 8.273 oz Body Mass Index (BMI) 34.3 Intake and Output for Last 24 Hours 01/05/18 01/06/18 01/07/18 23:59 23:59 23:59 Intake Total 938.2 / 938.2 120 / 120 Output Total 1725 / 1725 500 / 500 Balance -786.8 / -786.8 -380 / -380 Microbiology Past 72 Hours 01/06/18 07:10 Mucosa - Nose Respiratory Panel (PCR) - Final Laboratory Results 01/06/18 04:02: Magnesium 2.3 01/06/18 04:03: Diff Path Review Reviewed 01/06/18 04:03: Hemoglobin A1c 6.0 01/06/18 08:35: MRSA (PCR) Negative 01/06/18 09:16: Specimen Type ART, Sample Site L Radial, pH 7.38, Bicarbonate Actual 31.3 H, POC Total CO2 33, Base Excess 6 H, O2 Saturation 95, O2 % 40, ABG pCO2 52.9 H, ABG pO2 77, Vinnie Test POS, Respiration Rate 16, O2 Delivery Device Bi / C PAP, EPAP 10, IPAP 25, Blood Gas Notified Whom ICU MD, Blood Gas Notified Time 915 01/07/18 05:30: WBC 7.8, RBC 3.51 L, Hgb 9.9 L, Hct 33.7 L, MCV 96.0 H, MCH 28.2 , MCHC 29.4 L, RDW 23.7 H, RDW Differential 80.2 H, Plt Count 281, MPV 9.9, Immature Gran % (Auto) 2.000 H, Neut % (Auto) 79.2 H, Lymph % (Auto) 9.3 L, [place] % (Auto) 9.4, Eos % (Auto) 0.0, Baso % (Auto) 0.1, Absolute Neuts (auto) 6.2, Absolute Lymphs (auto) 0.73 L, Total Counted Not Reportable, Differential Comment SCAN, Polychromasia 1+, Hypochromasia 1+, Anisocytosis 1+, Microcytosis 1+ 01/07/18 05:30: Sodium 139, Potassium 4.3, Chloride 97 L, Carbon Dioxide 34.0 H , Anion Gap 8, BUN 20 H, Creatinine 1.12, Estim Creat Clear Calc 58.53, Est GFR (MDRD) Af Amer 83, Est GFR (MDRD) Non-Af 69, BUN/Creatinine Ratio 17.9, Glucose 243 H, Calcium 8.6, Triglycerides 274 H, Cholesterol 194, LDL Cholesterol 109, VLDL Cholesterol 55 H, HDL Cholesterol 30 L Current Medications Albuterol Sulfate (Ventolin Aerosols) 2.5 mg INHALATION Q2H PRN PRN PRN Reason: dyspnea, wheezing Albuterol/Ipratropium (Duoneb) 3 ml INHALATION Q4H.RT [facility] Last Admin: 01/07/18 07:16 Dose: 3 ml Atorvastatin Calcium (Lipitor) 40 mg PO QHS [facility] Last Admin: 01/06/18 22:21 Dose: 40 mg Diltiazem HCl (Cardizem Cd) 240 mg PO DAILY [facility] Last Admin: 01/06/18 09:58 Dose: 240 mg Ferrous Sulfate (Ferrous Sulfate) 325 mg PO BIDCM [facility] Last Admin: 01/06/18 15:56 Dose: 325 mg Furosemide (Lasix) 40 mg PO DAILY [facility] Last Admin: 01/06/18 09:58 Dose: 40 mg Gabapentin (Neurontin) 300 mg PO TIDCM [facility] Last Admin: 01/06/18 15:56 Dose: 300 mg Hydralazine HCl (Apresoline Iv) 10 mg IV Q4H PRN PRN PRN Reason: SBP > 160 Levofloxacin (Levaquin Iv) 500 mg in 100 mls @ 100 mls/hr IV Q24 [facility] Last Admin: 01/06/18 01:03 Dose: 100 mls/hr Sodium Chloride () 250 mls @ 15 mls/hr IV .[id number] PRN PRN Reason: SALINE FLUSH Last Admin: 01/06/18 01:03 Dose: 15 mls/hr Magnesium Hydroxide (Milk Of Magnesia) 30 ml PO DAILY PRN PRN PRN Reason: Constipation Methylprednisolone (Solu-Medrol) 40 mg IV Q8 [facility] Last Admin: 01/07/18 05:17 Dose: 40 mg Pantoprazole Sodium (Protonix) 40 mg PO DAILY [facility] Last Admin: 01/06/18 09:57 Dose: 40 mg [facility] Admin: 01/06/18 09:58 Dose: 20 mg Sodium Chloride () 5 - 30 ml IV UD PRN PRN Reason: SALINE FLUSH Last Admin: 01/06/18 14:44 Dose: 10 ml Medical Necessity - Tobacco Use Smoking Status: Former smoker Assessment/Plan All Active Problems COPD (chronic obstructive pulmonary disease) (Acute) The patient is a 72 y/o M w/ PMHx: Chronic COPD w/ Bronchiectasis w/ recent admission 11/2017 w/ discharge on 2L NC (Chronic Hypoxic Respiratory Failure), Obesity, Suspected ERNIE, History of PE on xarelto, PAF, Diastolic CHF, HTN, HLD, GERD, Hx Bladder CA s/p resection who presents to the [facility] ED on 01/05/18 with confusion, hypoxia, febrile. (1) Acute Encephalopathy secondary to Acute Hypoxic and Hypercarbic Respiratory Failure on Chronic secondary to Suspected Acute on chronic COPD exacerbation: CXR w/ chronic changes, CTPA w/ no acute evidence for PE, COPD, emphysema, mediastinal and bilateral hilar adenopathy, CBC on admission w/ WBC 5.6 without marked L shift. Admitted to the ICU as PCU status but, repeat ABG without marked improvement despite BIPAP adjustments x 2-->01/06 AM transitioned to AVAPS and transitioned to ICU status w/ improvement. Transitioned off AVAPS overnight, now on BIPAP/NC 01/07/18, continue ATC duonebs, PRN albuterol, IV methylprednisolone w/ oral transition per pulmonary discretion, currently maintained on IV levaquin (start 01/06/18), HOB, IS parameters, pending sputum cultures, respiratory panel negative, Bld Cx x 2 per ED upon presentation pending. (2) Diastolic CHF: History per patient, echo pending, continue home Xarelto, Lasix, Cardizem, not on statin therapy w/ FLP in AM and addition, not on ESCOBAR inhibitor but BP normal range, defer addition pending ECHO. (3) ? PAF: Notes recent PAF during prior hospitalization, likely secondary to strain of acute presentation. Continue Xarelto, cardizem regimen. Hypertension: Continue home regimen including Cardizem, Lasix, PRN hydralazine. (4) Hyperlipidemia: Not on statin, added, AM FLP w/ triglycerides 274, cholesterol 194, LDL 109, VLDL 55, HDL 30. (5) History of pulmonary embolism: Maintained on home Xarelto regimen. High risk as sold home over the last year and travels w/ mobile home. (6) GERD: Continue PPI. (7) Chronic Anemia/Fe Deficiency Anemia: Admission Hgb 9.5, continue home Fe supplementation. (8) Obesity: Weight loss and lifestyle changes encouraged, nutrition consulted. (9) Suspected ERNIE: Per discussion with ICU/Pulm he will need to have home study prior to allowance of inpatient study. (10) Hyperglycemia: Notable elevations, likely stress and steroid associated, HgbA1c 6.0%. (11) DVT Prophylaxis: SCDs, Xarelto. (12) CODE status: FULL CODE status. Code Visit Inpatient E&M: 30680 Subs Hosp L2
[2018-01-07] MEDS: 0.9% NaCl Peripheral Flush Adult/Peds IV ×2 (08:04→12:21)
[2018-01-07] MEDS: Ferrous Sulfate 325 MG Tablet PO ×2 (08:20→17:01)
[2018-01-07] MEDS: Rivaroxaban 20 MG Tablet PO (08:20)
[2018-01-07] MEDS: Furosemide 40 MG Tablet PO (08:20)
[2018-01-07] MEDS: dilTIAZem CD 240 MG Capsule PO (08:20)
[2018-01-07] MEDS: Gabapentin 300 MG Capsule PO ×3 (08:20→17:01)
[2018-01-07] MEDS: Pantoprazole Sodium 40 MG Tablet PO (08:20)
[2018-01-07] MEDS: levoFLOXacin IV 500 MG/100 ML BAG 100 MG IV (10:29)
--- NOTE | 2018-01-07 11:40 | CASEMGMT ---
Social Work Received referral from RN JONG that pt would like to complete health care POA. SW met with pt in room and introduced self and role of SW. Explained HCPOA and pt would like to complete. Assisted pt in completing this document. Reviewed Living Will with pt and he would like to talk to his family prior to completing this document. You have a right booklet provided to pt along with blank living will and instruction on how to complete this form. Copy of HCPOA placed in pt chart and original given to pt with recommendation to give copy to PCP and to newly named HCPOA. No further needs at this time. SW will remain available should other needs arise.\ CAROLA Niño
--- NOTE | 2018-01-07 11:46 | CASEMGMT ---
See [facility] CM Assessment Link. DC Plan: Home with [facility] -Plan is to return to motor home on discharge. [facility] was seeing him there. Resume order for Home Health placed. -Call to [facility] to update. Can resume care on dc . -Pt may wish to use [facility] Retail pharmacy on dc. -[facility]
[2018-01-07] MEDS: Acetaminophen 325 MG Tablet 650 MG PO ×2 (12:18→21:38)
--- NOTE | 2018-01-07 18:05 | NURSING ---
reviewed charting by Cruzito Carrillo RN and agree with assessments.
[2018-01-07] MEDS: Atorvastatin Calcium 40 MG Tablet PO (21:30)
[2018-01-08] VITALS (11 sets, daily range): BP systolic 126–130; BP diastolic 64–71; PULSE 85–96; RESP 16–27; TEMP 36.6–36.8; O2SAT 86–97
[2018-01-08] MEDS: Ipratropium/Albuterol Sulfate 3 ML AMPUL.NEB INHALATION ×4 (02:48→14:51)
[2018-01-08] MEDS: levoFLOXacin 750 MG Tablet PO (05:34)
[2018-01-08 06:19] LABS: Anion Gap 6 (5-15); BUN 17 mg/dL (7-18); BUN/Creat Ratio 20.3 RATIO (10-20); Calcium,Total 8.4 mg/dL (8.5-10.1); Chloride 100 mmol/L (98-107); Creatinine, Serum 0.84 mg/dL (0.70-1.30); EST Glomerular Filtration Rate 96 mL/min (>60); Est Glom Filt Rate - Afr Amer 116 mL/min (>60); Estimated Creatinine Clearance 78.04 ml/min; Glucose 177 mg/dL (74-106); Sodium Level 140 mmol/L (136-145)
[2018-01-08 06:48] LABS: Absolute Lymphocyte Count 1.15 X10^3/ul (0.83-4.51); Absolute Neutrophil Count 7.5 X10^3/uL (2.0-7.7); Basophil# 0.01 X10^3/uL; Basophil% 0.1 % (0-1); Hemoglobin 9.6 g/dl (13.0-16.5); Lymphocyte # 1.15 X10^3/ul (4.0); Lymphocyte % 11.7 % (19-41); Mean Corp Hgb Conc 29.1 g/gl (32-36); Mean Corpuscular Volume 96.2 fL (80-94); Mean Platelet Vol. 10.4 fl (6.2-12.0); Monocyte# 1.12 X10^3/uL; Monocyte% 11.4 % (0-10); Neutrophil # 7.46 X10^3/uL (2.7-7.7); Neutrophil % 75.6 % (47-70); Platelet Count 264 K/mm3 (150-450); RBC Distribution Width CV 23.6 % (11.6-14.6); RBC Distribution Width SD 80.4 fl (35.1-43.9); Red Blood Count 3.43 M/mm3 (4.6-6.2); White Blood Count 9.9 K/mm3 (4.4-11.0)
[2018-01-08 06:52] LABS: Differential Indicated SCAN CRITERIA MET; POSITIVE COUNT NO; POSITIVE DIFFERENTIAL NO; POSITIVE MORPHOLOGY YES
--- NOTE | 2018-01-08 07:36 | PCM.PROGNOTE ---
Patient Problems: Active and Suspected Problems COPD (chronic obstructive pulmonary disease) (Acute) Subjective: The patient was seen and examined at the bedside this morning. Events from the last 24 hours have been reviewed. The patient is currently afebrile, hemodynamically stable and maintaining appropriate oxygen saturations on AVAPS with an FiO2 requirement of 40%. The patient has remained stable following transfer out of the intensive care unit yesterday. The patient had been weaned down yesterday to 4 L/min via nasal cannula. The patient denies resting shortness of breath or cough. He is anxious to be discharged home. Objective: The patient's most recent lab work, culture data and imaging studies have all been personally reviewed. Infectious workup has been unrevealing to date. Surface echocardiogram revealed mild concentric LVH with an ejection fraction of 65% and evidence of stage I diastolic dysfunction. Right ventricular systolic pressure was estimated to be 33 mmHg. - Physical Exam General: Alert, Cooperative, No apparent distress HEENT: Atraumatic, PERRLA, Normocephalic Oral: No Gingival or Mucosal Lesions/ Ulcerations Neck: Supple, No Nodes, Trachea Midline Lungs: No rhonchi, No wheeze, No rales, Diminished Cardiovascular: Regular rate, Regular Rhythm, Normal S1, Normal S2, No murmurs Abdomen: Bowel Sounds Present, Soft, Non Tender, Obese Extremities: No clubbing, No cyanosis, No edema Skin: No breakdown Musculoskeletal: No Tenderness to Palpation of Joints or Extremities, No Muscle Wasting Lymphatic: No Cervical, Supraclavicular, or Inguinal Adenopathy Neurological: Neuro grossly intact Psych/Mental Status: Normal Affect, Appropriate Vital Signs Temp Pulse Resp BP Pulse Ox 98.2 F 85 20 H 130/71 H 96 01/08/18 03:26 01/08/18 05:58 01/08/18 05:58 01/08/18 03:26 01/08/18 05:58 Oxygen Flow Rate (L/min) 4.5 Oxygen Delivery Method Bi-pap Weight: 224 lb 13.944 oz Body Mass Index (BMI) 34.3 Intake and Output for Last 24 Hours 01/06/18 01/07/18 01/08/18 23:59 23:59 23:59 Intake Total 938.2 / 938.2 675 / 675 120 / 120 Output Total 1725 / 1725 1550 / 1550 Balance -786.8 / -786.8 -875 / -875 120 / 120 Microbiology Past 72 Hours 01/06/18 08:35 Gram Stain - Final Sputum, Expectorated/Coughed Respiratory Culture - Preliminary Appears to be normal respiratory deon. Further studies to follow. 01/06/18 07:10 Respiratory Panel (PCR) - Final Mucosa - Nose Laboratory Tests Past 24 Hrs 01/08/18 01/08/18 05:20 05:20 WBC 9.9 RBC 3.43 L Hgb 9.6 L Hct 33.0 L MCV 96.2 H MCH 28.0 MCHC 29.1 L RDW 23.6 H RDW Differential 80.4 H Plt Count 264 MPV 10.4 Immature Gran % (Auto) 1.200 H Neut % (Auto) 75.6 H Lymph % (Auto) 11.7 L [place] % (Auto) 11.4 H Eos % (Auto) 0.0 Baso % (Auto) 0.1 Absolute Neuts (auto) 7.5 Absolute Lymphs (auto) 1.15 Total Counted Not Reportable Sodium 140 Potassium 4.0 Chloride 100 Carbon Dioxide 34.0 H Anion Gap 6 BUN 17 Creatinine 0.84 Estim Creat Clear Calc 78.04 Est GFR (MDRD) Af Amer 116 Est GFR (MDRD) Non-Af 96 BUN/Creatinine Ratio 20.3 H Glucose 177 H Calcium 8.4 L Clinical Impression(s) from Imaging Studies Chest X-Ray 01/05/18 19:42 IMPRESSION: There are findings consistent with COPD. There is no evidence of acute chest disease. Electronically Signed: John Garcia MD at 19:57 EDT , Service support , Chest CTA 01/05/18 22:28 IMPRESSION: No evidence for PE. COPD/emphysema. Mediastinal and bilateral hilar adenopathy. Consider biopsy or follow-up in 6 months. Electronically Signed: John Garcia MD at 23:33 EDT , Service support , Chest X-Ray 01/06/18 07:54 IMPRESSION: Stable mild increased markings at the lung bases. There has been essentially no change since prior study. Electronically Signed: Filiberto Hernandez MD at 10:04 EDT Tel [phone], Service support , Medical Necessity - Tobacco Use Smoking Status: Former smoker Assessment/Plan All Active Problems COPD (chronic obstructive pulmonary disease) (Acute) RECOMMENDATIONS: 1. Continue AVAPS with naps and nightly. 2. Wean supplemental oxygen to maintain saturations 88-92% 3. Provide with and encourage aggressive incentive spirometer use. Mobilize patient as tolerated. 4. Continue prednisone 40 mg daily by mouth with plans for taper at discharge. 5. Plan to complete an empiric 7-day course of Levaquin. 6. Continue Xarelto 7. Close outpatient pulmonary follow-up is recommended. Baseline PFTs and polysomnogram can be obtained at that time. 8. Perform walking oximetry study prior to consideration for discharge from the hospital. 9. Please ensure that the patient has follow-up scheduled in the pulmonary medicine clinic within 2 weeks of his discharge. IMPRESSIONS: 1. Acute on Chronic hypoxemic and hypercarbic respiratory failure Likely secondary to suspected COPD with exacerbation, although the exact inciting factor is not clear. The patient did have cylindrical bronchiectasis noted on high-resolution CT chest in November 2017, completed at [facility]. There is no evidence of PE or focal pulmonary infiltrate noted on repeat chest imaging on admission. However, the patient was febrile. Infectious workup has been unrevealing to date. Despite this, we will plan to complete an empiric 7-day treatment course with Levaquin. Continue scheduled bronchodilators along with steroids. Anticipate prednisone taper at discharge. The patient has responded remarkably well to the use of AVAPS, which will be continued with naps and nightly. Given that the patient does appear to have chronic CO2 retention, would recommend weaning FiO2 to maintain oxygen saturations 88-92%. The patient undoubtedly needs close follow-up in the pulmonary medicine clinic upon discharge from the hospital. Baseline PFTs need to be obtained. 2. 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 He would certainly benefit from a diagnostic polysomnogram for further evaluation. This can be arranged for on an outpatient basis. For now, the patient will be continued on AVAPS as noted above. 3. Personal history of PE/paroxysmal atrial fibrillation The patient was noted to have a PE in October 2016 and has been anticoagulated with Xarelto since that time. This will be continued without change. 4. Heart failure with preserved ejection fraction/GERD/bladder cancer status post resection Complicates care, management, recovery and prognosis. Continue PPI. Physical therapy to continue working with patient. This note was generated with [employer] dictation software. It may contain incorrect words, spelling, and punctuation that were not noted in checking the note before signing. Code Visit Inpatient E&M: 62998 Subs Hosp L2
--- NOTE | 2018-01-08 07:41 | PN_ITS ---
Patient Problems: Active and Suspected Problems COPD (chronic obstructive pulmonary disease) (Acute) Subjective: The patient was seen and examined at the bedside this morning. Events from the last 24 hours have been reviewed. The patient is currently afebrile, hemodynamically stable and maintaining appropriate oxygen saturations on AVAPS with an FiO2 requirement of 40%. The patient has remained stable following transfer out of the intensive care unit yesterday. The patient had been weaned down yesterday to 4 L/min via nasal cannula. The patient denies resting shortness of breath or cough. He is anxious to be discharged home. Objective: The patient's most recent lab work, culture data and imaging studies have all been personally reviewed. Infectious workup has been unrevealing to date. Surface echocardiogram revealed mild concentric LVH with an ejection fraction of 65% and evidence of stage I diastolic dysfunction. Right ventricular systolic pressure was estimated to be 33 mmHg. - Physical Exam General: Alert, Cooperative, No apparent distress HEENT: Atraumatic, PERRLA, Normocephalic Oral: No Gingival or Mucosal Lesions/ Ulcerations Neck: Supple, No Nodes, Trachea Midline Lungs: No rhonchi, No wheeze, No rales, Diminished Cardiovascular: Regular rate, Regular Rhythm, Normal S1, Normal S2, No murmurs Abdomen: Bowel Sounds Present, Soft, Non Tender, Obese Extremities: No clubbing, No cyanosis, No edema Skin: No breakdown Musculoskeletal: No Tenderness to Palpation of Joints or Extremities, No Muscle Wasting Lymphatic: No Cervical, Supraclavicular, or Inguinal Adenopathy Neurological: Neuro grossly intact Psych/Mental Status: Normal Affect, Appropriate Vital Signs Temp Pulse Resp BP Pulse Ox 98.2 F 85 20 H 130/71 H 96 01/08/18 03:26 01/08/18 05:58 01/08/18 05:58 01/08/18 03:26 01/08/18 05:58 Oxygen Flow Rate (L/min) 4.5 Oxygen Delivery Method Bi-pap Weight: 224 lb 13.944 oz Body Mass Index (BMI) 34.3 Intake and Output for Last 24 Hours 01/06/18 01/07/18 01/08/18 23:59 23:59 23:59 Intake Total 938.2 / 938.2 675 / 675 120 / 120 Output Total 1725 / 1725 1550 / 1550 Balance -786.8 / -786.8 -875 / -875 120 / 120 Microbiology Past 72 Hours 01/06/18 08:35 Gram Stain - Final Sputum, Expectorated/Coughed Respiratory Culture - Preliminary Appears to be normal respiratory deon. Further studies to follow. 01/06/18 07:10 Respiratory Panel (PCR) - Final Mucosa - Nose Laboratory Tests Past 24 Hrs 01/08/18 01/08/18 05:20 05:20 WBC 9.9 RBC 3.43 L Hgb 9.6 L Hct 33.0 L MCV 96.2 H MCH 28.0 MCHC 29.1 L RDW 23.6 H RDW Differential 80.4 H Plt Count 264 MPV 10.4 Immature Gran % (Auto) 1.200 H Neut % (Auto) 75.6 H Lymph % (Auto) 11.7 L [place] % (Auto) 11.4 H Eos % (Auto) 0.0 Baso % (Auto) 0.1 Absolute Neuts (auto) 7.5 Absolute Lymphs (auto) 1.15 Total Counted Not Reportable Sodium 140 Potassium 4.0 Chloride 100 Carbon Dioxide 34.0 H Anion Gap 6 BUN 17 Creatinine 0.84 Estim Creat Clear Calc 78.04 Est GFR (MDRD) Af Amer 116 Est GFR (MDRD) Non-Af 96 BUN/Creatinine Ratio 20.3 H Glucose 177 H Calcium 8.4 L Clinical Impression(s) from Imaging Studies Chest X-Ray 01/05/18 19:42 IMPRESSION: There are findings consistent with COPD. There is no evidence of acute chest disease. Electronically Signed: John Garcia MD at 19:57 EDT , Service support , Chest CTA 01/05/18 22:28 IMPRESSION: No evidence for PE. COPD/emphysema. Mediastinal and bilateral hilar adenopathy. Consider biopsy or follow-up in 6 months. Electronically Signed: John Garcia MD at 23:33 EDT , Service support , Chest X-Ray 01/06/18 07:54 IMPRESSION: Stable mild increased markings at the lung bases. There has been essentially no change since prior study. Electronically Signed: Filiberto Hernandez MD at 10:04 EDT Tel [phone], Service support , Medical Necessity - Tobacco Use Smoking Status: Former smoker Assessment/Plan All Active Problems COPD (chronic obstructive pulmonary disease) (Acute) RECOMMENDATIONS: 1. Continue AVAPS with naps and nightly. 2. Wean supplemental oxygen to maintain saturations 88-92% 3. Provide with and encourage aggressive incentive spirometer use. Mobilize patient as tolerated. 4. Continue prednisone 40 mg daily by mouth with plans for taper at discharge. 5. Plan to complete an empiric 7-day course of Levaquin. 6. Continue Xarelto 7. Close outpatient pulmonary follow-up is recommended. Baseline PFTs and polysomnogram can be obtained at that time. 8. Perform walking oximetry study prior to consideration for discharge from the hospital. 9. Please ensure that the patient has follow-up scheduled in the pulmonary medicine clinic within 2 weeks of his discharge. IMPRESSIONS: 1. Acute on Chronic hypoxemic and hypercarbic respiratory failure Likely secondary to suspected COPD with exacerbation, although the exact inciting factor is not clear. The patient did have cylindrical bronchiectasis noted on high-resolution CT chest in November 2017, completed at [facility]. There is no evidence of PE or focal pulmonary infiltrate noted on repeat chest imaging on admission. However, the patient was febrile. Infectious workup has been unrevealing to date. Despite this, we will plan to complete an empiric 7- day treatment course with Levaquin. Continue scheduled bronchodilators along with steroids. Anticipate prednisone taper at discharge. The patient has responded remarkably well to the use of AVAPS, which will be continued with naps and nightly. Given that the patient does appear to have chronic CO2 retention, would recommend weaning FiO2 to maintain oxygen saturations 88-92%. The patient undoubtedly needs close follow-up in the pulmonary medicine clinic upon discharge from the hospital. Baseline PFTs need to be obtained. 2. 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 He would certainly benefit from a diagnostic polysomnogram for further evaluation. This can be arranged for on an outpatient basis. For now, the patient will be continued on AVAPS as noted above. 3. Personal history of PE/paroxysmal atrial fibrillation The patient was noted to have a PE in October 2016 and has been anticoagulated with Xarelto since that time. This will be continued without change. 4. Heart failure with preserved ejection fraction/GERD/bladder cancer status post resection Complicates care, management, recovery and prognosis. Continue PPI. Physical therapy to continue working with patient. This note was generated with [employer] dictation software. It may contain incorrect words, spelling, and punctuation that were not noted in checking the note before signing. Code Visit Inpatient E&M: 63369 Subs Hosp L2
[2018-01-08] MEDS: Rivaroxaban 20 MG Tablet PO (09:10)
[2018-01-08] MEDS: Furosemide 40 MG Tablet PO (09:10)
[2018-01-08] MEDS: Gabapentin 300 MG Capsule PO ×2 (09:10→12:15)
[2018-01-08] MEDS: dilTIAZem CD 240 MG Capsule PO (09:10)
[2018-01-08] MEDS: predniSONE 20 MG Tablet 40 MG PO (09:10)
[2018-01-08] MEDS: Ferrous Sulfate 325 MG Tablet PO (09:11)
[2018-01-08] MEDS: Pantoprazole Sodium 40 MG Tablet PO (09:11)
--- NOTE | 2018-01-08 10:14 | PCM.DC ---
- Discharge Diagnoses Current Active Problems: Current Active and Chronic Problems COPD (chronic obstructive pulmonary disease) (Acute) Chronic back pain (Chronic) You will use the following diet at home:: Cardiac Discharge Activity: Return to Normal Activity Call your doctor if you observe: Shortness of breath, Dizziness, Fainting spells, Chest pain, Increased palpitations (irregular heartbeat) Additional Instructions: Continue home supplemental oxygen to maintain O2 at or above 90%. Allergies/Adverse Reactions: Allergies No Known Allergies Allergy (Verified 01/05/18 19:20) Medications to take at Discharge Diltiazem HCl [Cartia Xt] 240 mg PO DAILY 01/05/18 Ferrous Sulfate 325 mg PO BIDCM 01/05/18 Gabapentin [Neurontin] 300 mg PO TID 01/05/18 Pantoprazole Sodium [Protonix] 40 mg PO DAILY 01/05/18 Rivaroxaban [Xarelto] 20 mg PO DAILY 01/05/18 Torsemide [Demadex] 20 mg PO DAILY 01/05/18 Albuterol Aerosols [Ventolin Aerosols] 2.5 mg INHALATION Q2H PRN PRN #120 vial.neb. 01/08/18 Atorvastatin Calcium [Lipitor] 40 mg PO QHS #30 tab 01/08/18 Ipratropium/Albuterol Sulfate [Duoneb] 3 ml INHALATION Q4H.RT #120 ampul.neb 01/08/18 Prednisone See Taper PO DAILY #30 tab 01/08/18 levoFLOXacin tablet [Levaquin tablet] 750 mg PO DAILY@0600 #4 tab 01/08/18 The following prescriptions were given: Albuterol Aerosols [Ventolin Aerosols] 2.5 mg INHALATION Q2H PRN PRN #120 vial.neb. PRN Reason: dyspnea, wheezing Ipratropium/Albuterol Sulfate [Duoneb] 3 ml INHALATION Q4H.RT #120 ampul.neb Atorvastatin Calcium [Lipitor] 40 mg PO QHS #30 tab levoFLOXacin tablet [Levaquin tablet] 750 mg PO DAILY@0600 #4 tab Prednisone See Taper PO DAILY #30 tab Primary Care Physician: Patricia Vela,Out of [Primary Care Provider] - Please follow up with your Primary Care Physician in: 1 Week Please Follow Up With: Harpal Stafford, DO - Pay see IN[employer]CTOR [employer]/PA When: Within 1 Week Proposed Discharge Date: 01/08/18
--- NOTE | 2018-01-08 10:16 | PCM.DC.SUM ---
Discharge Date and Diagnosis Date of Admission: 01/05/18 Date of Discharge: 01/08/18 - Primary Discharge Diagnosis Active and Suspected Problems 1. Acute on chronic hypoxemic and hypercarbic respiratory failure secondary to suspected COPD with exacerbation 2. Acute encephalopathy secondary to #1-resolved. 3. Suspected obstructive sleep apnea - Secondary Discharge Diagnosis Chronic Problems Chronic back pain (Chronic) Chronic diastolic CHF Paroxysmal atrial fibrillation History of pulmonary embolism GERD Chronic iron deficiency anemia Obesity Hyperlipidemia History of bladder cancer Hospital Course and Treatment Imaging Results: Diagnostic Data Chest CTA 01/05/18 22:28 IMPRESSION: No evidence for PE. COPD/emphysema. Mediastinal and bilateral hilar adenopathy. Consider biopsy or follow-up in 6 months. Electronically Signed: John Garcia MD at 23:33 EDT , Service support , Chest X-Ray 01/06/18 07:54 IMPRESSION: Stable mild increased markings at the lung bases. There has been essentially no change since prior study. Electronically Signed: Filiberto Hernandez MD at 10:04 EDT Tel [phone], Service support , Dr. Stafford- Pulmonary Medicine Operations: None Procedures: 2-D Echocardiogram Summary of Care Provided: The patient is a 72 year old M admitted 01/05/2018 due to shortness of breath. He has a past medical history of chronic COPD with bronchiectasis, chronic hypoxic respiratory failure, chronic back pain, chronic diastolic CHF, paroxysmal atrial for ablation, history of pulmonary embolism, GERD, chronic iron deficiency anemia, lipidemia, obesity, history of bladder cancer. Patient was noted to have acute on chronic hypoxemic and hypercarbic respiratory failure secondary to suspected COPD with exacerbation with associated acute encephalopathy. Patient initially admitted to ICU with BiPAP. Pulmonary consulted. Patient's breathing significantly improved. He received IV Levaquin and IV Solu-Medrol. Blood cultures show no growth. Respiratory panel negative. Sputum culture shows normal respiratory deon. Patient chronically wears 2 L nasal cannula continuously. He will continue supplemental oxygen to maintain O2 at 88-92%. He will continue 12 day prednisone taper at discharge. Transition to oral Levaquin and complete a total of 7 days of therapy. Follow-up with pulmonary medicine as outpatient for baseline PFTs and polysomnogram. Patient will be discharged with nebulizer for albuterol and DuoNeb aerosols due to COPD. Patient is suspected to have obstructive sleep apnea. Will continue outpatient workup. Other chronic medical conditions as noted above are stable at this time. Echocardiogram during admission showed an EF of 65%, stage I diastolic dysfunction, RVSP estimated to be 33 mmHg. General: Alert, Cooperative, No apparent distress HEENT: Atraumatic, PERRLA, Normocephalic Oral: No Gingival or Mucosal Lesions/ Ulcerations Neck: Supple, No Nodes, Trachea Midline Lungs: Clear to auscultation, diminished Cardiovascular: Regular rate, Regular Rhythm, Normal S1, Normal S2, No murmurs Abdomen: Bowel Sounds Present, Soft, Non Tender, Obese Extremities: No clubbing, No cyanosis, No edema Skin: No breakdown Musculoskeletal: No Tenderness to Palpation of Joints or Extremities Lymphatic: No Cervical, Supraclavicular, or Inguinal Adenopathy Neurological: Neuro grossly intact Psych/Mental Status: Normal Affect, Appropriate Patient seen and examined her discharge. Physical assessment as noted above. Patient will continue home supplemental oxygen to maintain O2 at 80-90%. Patient is stable for discharge home with further follow-up with primary care physician and pulmonary medicine. This patient was seen by LUIS Leonard under the supervision of Dr. Jimenez. Discharge Diet: Low fat/ Low Cholesterol Discharge Activity: Return to Normal Activity Call your doctor if you observe: Shortness of breath, Dizziness, Fainting spells, Chest pain, Increased palpitations (irregular heartbeat) Home Medications: Medications to take at Discharge Diltiazem HCl [Cartia Xt] 240 mg PO DAILY 01/05/18 Ferrous Sulfate 325 mg PO BIDCM 01/05/18 Gabapentin [Neurontin] 300 mg PO TID 01/05/18 Pantoprazole Sodium [Protonix] 40 mg PO DAILY 01/05/18 Rivaroxaban [Xarelto] 20 mg PO DAILY 01/05/18 Torsemide [Demadex] 20 mg PO DAILY 01/05/18 Albuterol Aerosols [Ventolin Aerosols] 2.5 mg INHALATION Q2H PRN PRN #120 vial.neb. 01/08/18 Atorvastatin Calcium [Lipitor] 40 mg PO QHS #30 tab 01/08/18 Ipratropium/Albuterol Sulfate [Duoneb] 3 ml INHALATION Q4H.RT #120 ampul.neb 01/08/18 Prednisone See Taper PO DAILY #30 tab 01/08/18 levoFLOXacin tablet [Levaquin tablet] 750 mg PO DAILY@0600 #4 tab 01/08/18 Following Prescrptions Were Given to Patient: Albuterol Aerosols [Ventolin Aerosols] 2.5 mg INHALATION Q2H PRN PRN #120 vial.neb. PRN Reason: dyspnea, wheezing Ipratropium/Albuterol Sulfate [Duoneb] 3 ml INHALATION Q4H.RT #120 ampul.neb Atorvastatin Calcium [Lipitor] 40 mg PO QHS #30 tab levoFLOXacin tablet [Levaquin tablet] 750 mg PO DAILY@0600 #4 tab Prednisone See Taper PO DAILY #30 tab Primary Care Physician: Patricia Doctor,Out of [Primary Care Provider] - Please follow up with your Primary Care Physician in: 1 Week Please Follow Up With: Harpal Stafford, DO - Pay see TABULATING CLERK/PA When: Within 1 Week Disposition: Home Minutes spent on discharge:: 35 Patient Condition:: Stable Medical Necessity - Tobacco Use Smoking Status: Former smoker Meaningful Use Info Meaningful Use Diagnoses (Choose all that apply): None applicable
--- NOTE | 2018-01-08 10:34 | DS.PCM_ITS ---
Discharge Date and Diagnosis Date of Admission: 01/05/18 Date of Discharge: 01/08/18 - Primary Discharge Diagnosis Active and Suspected Problems 1. Acute on chronic hypoxemic and hypercarbic respiratory failure secondary to suspected COPD with exacerbation 2. Acute encephalopathy secondary to #1-resolved. 3. Suspected obstructive sleep apnea - Secondary Discharge Diagnosis Chronic Problems Chronic back pain (Chronic) Chronic diastolic CHF Paroxysmal atrial fibrillation History of pulmonary embolism GERD Chronic iron deficiency anemia Obesity Hyperlipidemia History of bladder cancer Hospital Course and Treatment Imaging Results: Diagnostic Data Chest CTA 01/05/18 22:28 IMPRESSION: No evidence for PE. COPD/emphysema. Mediastinal and bilateral hilar adenopathy. Consider biopsy or follow-up in 6 months. Electronically Signed: John Garcia MD at 23:33 EDT , Service support , Chest X-Ray 01/06/18 07:54 IMPRESSION: Stable mild increased markings at the lung bases. There has been essentially no change since prior study. Electronically Signed: Filiberto Hernandez MD at 10:04 EDT Tel [phone], Service support , Dr. Stafford- Pulmonary Medicine Operations: None Procedures: 2-D Echocardiogram Summary of Care Provided: The patient is a 72 year old M admitted 01/05/2018 due to shortness of breath. He has a past medical history of chronic COPD with bronchiectasis, chronic hypoxic respiratory failure, chronic back pain, chronic diastolic CHF, paroxysmal atrial for ablation, history of pulmonary embolism, GERD, chronic iron deficiency anemia, lipidemia, obesity, history of bladder cancer. Patient was noted to have acute on chronic hypoxemic and hypercarbic respiratory failure secondary to suspected COPD with exacerbation with associated acute encephalopathy. Patient initially admitted to ICU with BiPAP. Pulmonary consulted. Patient's breathing significantly improved. He received IV Levaquin and IV Solu-Medrol. Blood cultures show no growth. Respiratory panel negative. Sputum culture shows normal respiratory deon. Patient chronically wears 2 L nasal cannula continuously. He will continue supplemental oxygen to maintain O2 at 88-92%. He will continue 12 day prednisone taper at discharge. Transition to oral Levaquin and complete a total of 7 days of therapy. Follow- up with pulmonary medicine as outpatient for baseline PFTs and polysomnogram. Patient will be discharged with nebulizer for albuterol and DuoNeb aerosols due to COPD. Patient is suspected to have obstructive sleep apnea. Will continue outpatient workup. Other chronic medical conditions as noted above are stable at this time. Echocardiogram during admission showed an EF of 65%, stage I diastolic dysfunction, RVSP estimated to be 33 mmHg. General: Alert, Cooperative, No apparent distress HEENT: Atraumatic, PERRLA, Normocephalic Oral: No Gingival or Mucosal Lesions/ Ulcerations Neck: Supple, No Nodes, Trachea Midline Lungs: Clear to auscultation, diminished Cardiovascular: Regular rate, Regular Rhythm, Normal S1, Normal S2, No murmurs Abdomen: Bowel Sounds Present, Soft, Non Tender, Obese Extremities: No clubbing, No cyanosis, No edema Skin: No breakdown Musculoskeletal: No Tenderness to Palpation of Joints or Extremities Lymphatic: No Cervical, Supraclavicular, or Inguinal Adenopathy Neurological: Neuro grossly intact Psych/Mental Status: Normal Affect, Appropriate Patient seen and examined her discharge. Physical assessment as noted above. Patient will continue home supplemental oxygen to maintain O2 at 80-90%. Patient is stable for discharge home with further follow-up with primary care physician and pulmonary medicine. This patient was seen by LUIS Leonard under the supervision of Dr. Jimenez. Discharge Diet: Low fat/ Low Cholesterol Discharge Activity: Return to Normal Activity Call your doctor if you observe: Shortness of breath, Dizziness, Fainting spells , Chest pain, Increased palpitations (irregular heartbeat) Home Medications: Medications to take at Discharge Diltiazem HCl [Cartia Xt] 240 mg PO DAILY 01/05/18 Ferrous Sulfate 325 mg PO BIDCM 01/05/18 Gabapentin [Neurontin] 300 mg PO TID 01/05/18 Pantoprazole Sodium [Protonix] 40 mg PO DAILY 01/05/18 Rivaroxaban [Xarelto] 20 mg PO DAILY 01/05/18 Torsemide [Demadex] 20 mg PO DAILY 01/05/18 Albuterol Aerosols [Ventolin Aerosols] 2.5 mg INHALATION Q2H PRN PRN #120 vial.neb. 01/08/18 Atorvastatin Calcium [Lipitor] 40 mg PO QHS #30 tab 01/08/18 Ipratropium/Albuterol Sulfate [Duoneb] 3 ml INHALATION Q4H.RT #120 ampul.neb Prednisone See Taper PO DAILY #30 tab 01/08/18 levoFLOXacin tablet [Levaquin tablet] 750 mg PO DAILY@0600 #4 tab 01/08/18 Following Prescrptions Were Given to Patient: Albuterol Aerosols [Ventolin Aerosols] 2.5 mg INHALATION Q2H PRN PRN #120 vial.neb. PRN Reason: dyspnea, wheezing Ipratropium/Albuterol Sulfate [Duoneb] 3 ml INHALATION Q4H.RT #120 ampul.neb Atorvastatin Calcium [Lipitor] 40 mg PO QHS #30 tab levoFLOXacin tablet [Levaquin tablet] 750 mg PO DAILY@0600 #4 tab Prednisone See Taper PO DAILY #30 tab Primary Care Physician: Patricia Doctor,Out of [Primary Care Provider] - Please follow up with your Primary Care Physician in: 1 Week Please Follow Up With: Harpal Stafford, DO - Pay see CLINICAL EDUCATION COORDINATOR/PA When: Within 1 Week Disposition: Home Minutes spent on discharge:: 35 Patient Condition:: Stable Medical Necessity - Tobacco Use Smoking Status: Former smoker Meaningful Use Info Meaningful Use Diagnoses (Choose all that apply): None applicable
--- NOTE | 2018-01-08 10:40 | CASEMGMT ---
Resumption of care order and d/c instructions faxed to [facility] at this time and call to [facility] to notify them of pt discharge, voice understanding. Rhianna LIN CM
--- NOTE | 2018-01-08 11:05 | CASEMGMT ---
Addendum entered by Lilia Abbasi 01/08/18 14:54: This RN CM spoke with Lizzette at Dr. Crespo's office and she states that Dr. Crespo states would like to see pt prior to sleep study being scheduled and this RN CM set up appointment with Dr. Crespo for pt on 01/12/18 at 0900. Updated oxygen script for 4 liters faxed with testing to [facility] at this time. Pt/ updated on all at this time and voice understanding. Pt/ voices no further questions/concerns/needs at this time. Rhianna RN JONG Original Note: Per Dr. Stafford, pt needs a sleep study JOEY and per pt, he can only have an at home sleep study due to insurance. Call to [facility] and per rep, [facility] is out of network and pt has no out of network benefits for a sleep study at this time. Rep states that an at home sleep study would be covered per Medicare guidelines. Dr. Stafford informed of all at this time, voices understanding. Per [facility] website, Dr. Crespo, [facility] pulmonogist, is in-network for [facility] at this time. Call to Dr. Crespo's billing department and they state that they are in-network with [employer] H[employer] at this time. Updated on pt situation and need for urgent sleep study and office requests that this RN CM fax clinicals(showing need for urgent sleep study) and facesheet at this time. This RN CM to room to update pt on all at this time, pt voices understanding and is agreeable for referral to Dr. Crespo at this time. Pt voices no further concerns/needs at this time. Referral faxed to [facility] and this RN CM is awaiting call from scheduling to set up appt/sleep study for pt at this time. This RN CM will call if has not heard back from office regarding appt/sleep study. Rhianna LIN CM
[2018-01-08] MEDS: Acetaminophen 325 MG Tablet 650 MG PO (14:40)
== END 2018-01-08 15:45 | disposition home or self-care (01) | DRG 189 ==
LOC: ED 20:55 → ICU 23:33 → PCU 01-08 10:41
PROVIDERS: Internal Medicine Critical Care Medicine; Admitting Provider Family Medicine; Emergency Provider Emergency Medicine; Visit Provider Family Medicine
DX: J96.21 Acute and chronic respiratory failure with hypoxia (principal); G93.40 Encephalopathy, unspecified; J44.1 Chronic obstructive pulmonary disease with (acute) exacerbation; I50.32 Chronic diastolic (congestive) heart failure; J96.22 Acute and chronic respiratory failure with hypercapnia; Z99.81 Dependence on supplemental oxygen; M54.9 Dorsalgia, unspecified; G89.29 Other chronic pain; Z87.891 Personal history of nicotine dependence; I48.0 Paroxysmal atrial fibrillation; E78.5 Hyperlipidemia, unspecified; Z86.711 Personal history of pulmonary embolism; K21.9 Gastro-esophageal reflux disease without esophagitis; D50.9 Iron deficiency anemia, unspecified; E66.9 Obesity, unspecified; G47.33 Obstructive sleep apnea (adult) (pediatric); R73.9 Hyperglycemia, unspecified; I11.0 Hypertensive heart disease with heart failure; Z85.51 Personal history of malignant neoplasm of bladder; Z68.34 Body mass index [BMI] 34.0-34.9, adult; Z79.01 Long term (current) use of anticoagulants
CPT/HCPCS: 36415; 36600; 51702; 71045; 71275; 80048; 80053; 80061; 81001; 82803; 82962; 83036; 83605; 83735; 83880; 84484; 85025; 85610; 85730; 87040; 87070; 87086; 87205; 87633; 87641; 93005; 93306; 94002; 94003; 94640; 97162; 97165; 97530; 97802; 99285; J7030; J7040; J7050; Q9957; Q9967; A4216; C8929